=== PATIENT | female | born 1940 | race Caucasian/White ===

== ENCOUNTER 2019-04-24 17:38 | Emergency (ER) | payer MEDICARE, OTHER ==
--- NOTE | 2019-04-24 18:04 | EDM.PDOC ---
ED HPI GENERAL MEDICAL PROBLEM - General Chief Complaint: Genitourinary Problem Stated Complaint: VAGINAL BLEEDING Time Seen by Provider: 04/24/19 17:58 Source of Information: Reports: Patient History Limitations: Reports: No Limitations - History of Present Illness INITIAL COMMENTS - FREE TEXT/NARRATIVE: 79-year-old female who had a vaginal hysterectomy performed on 04/10/2019 at [facility] in [place]. She reports that she felt she had been doing well until approximately a few days ago when she began to feel some bloating and lower abdominal discomfort. She had been eating and drinking normally. Today, however , she was in bed most of the day, did not feel well all through the day, did not eat well through the day and had more lower abdominal discomfort and at 5 PM today noticed some bright red blood per her vagina. She has been somewhat constipated she feels since she was discharged home following her surgery. She has been having bowel movements but they have been hard. Her last bowel movement was about 2 days ago and it was hard. There's been no blood in her stool. She reports that she has been straining quite a bit the past couple of days trying to have bowel movements. She has been taking fiber tablets for her constipation. She was discharged from the hospital with a Ricardo catheter in place and had that in place for 1 week. She had it removed in the [facility] clinic one week ago and she has been able to urinate but has had some discomfort with urination. She has had no fevers or chills. She has had malaise all day today. She has had no nausea or vomiting. She rates the pain in her lower abdomen as a 5/10. It is a tight and crampy type pain. She states "like something is in there that needs to come out". The pain is worse at times. It does seem to be worse with palpation and with movement and with straining. There are no other associated signs or symptoms. There are no other modifying factors. Onset: Other (Abdominal discomfort for the past few days with some bloating and vaginal bleeding which began at 5 PM today.) Duration: Getting Worse Location: Reports: Abdomen, Pelvis Quality: Reports: Other (Cramping and tightness) Severity: Moderate Improves with: Reports: Rest Worsens with: Reports: Other (Palpation and activity), Movement Context: Reports: Other (As above) Associated Symptoms: Reports: Malaise, Weakness, Other (Fatigue and abdominal pain) Treatments BUSINESS OFFICE ASSOCIATE: Reports: Acetaminophen abd Pain Score (Numeric/FACES): 3 - Related Data Allergies Allergy/AdvReac Type Severity Reaction Status Date / Time miconazole Allergy Hives Verified 04/24/19 18:09 Home Meds: Home Meds Ascorbate Calcium [Vitamin C] 500 mg PO DAILY 03/09/16 [History] Aspirin [Halfprin] 81 mg PO DAILY 03/09/16 [History] Calcium Carbonate/Vitamin D3 [Os-Aman 500+D] 1 each PO BID 03/09/16 [History] Cetirizine [ZyrTEC] 10 mg PO DAILY 03/09/16 [History] Fluticasone Propionate [Flonase] 2 spray NS DAILY 03/09/16 [History] Gluc 2KCl/Chondr/Karen Hy/Hy Ac [Glucosamine & Chondroitin Cap] 1 each PO DAILY 03/09/16 [History] Multivit-Min/FA/Lycopene/Lut [Centrum Silver Tablet] 1 each PO DAILY 03/09/16 [ History] Simvastatin [Zocor] 20 mg PO BEDTIME 03/09/16 [History] Vitamin E 200 unit PO DAILY 03/09/16 [History] Losartan/Hydrochlorothiazide [Losartan-HCTZ 50-12.5 MG] 1 each PO DAILY [History] Past Medical History HEENT History: Reports: Cataract Cardiovascular History: Reports: High Cholesterol, Hypertension Gastrointestinal History: Reports: GERD Genitourinary History: Reports: Urinary Incontinence Musculoskeletal History: Reports: Osteoporosis Endocrine/Metabolic History: Reports: Hypothyroidism, Obesity/BMI 30+ Dermatologic History: Reports: Other (See Below) Other Dermatologic History: CONTACT DERMATITIS AND ECZEMA - Infectious Disease History Infectious Disease History: Reports: Chicken Pox, Rubella, Shingles - Past Surgical History HEENT Surgical History: Reports: Cataract Surgery Female Surgical History: Reports: Hysterectomy (Vaginal hysterectomy on 2018.) Musculoskeletal Surgical History: Reports: Knee Replacement (Bilateral), Shoulder Replacement (Right) Social & Family History - Tobacco Use Smoking Status *Q: Never Smoker - Alcohol Use Alcohol Use History: Yes Alcohol Use Frequency: Weekly - Living Situation & Occupation Living situation: Reports: (She is here with her .) Occupation: Retired (She worked at the [employer] in [place] until she retired.) ED ROS GENERAL - Review of Systems Review Of Systems: See Below Constitutional: Reports: Weakness, Fatigue HEENT: Reports: No Symptoms Respiratory: Reports: No Symptoms Cardiovascular: Reports: Lightheadedness (Today) GI/Abdominal: Reports: Abdominal Pain, Constipation (Heart stools and feels constipated) : Reports: Other (Bright red blood per vagina. Some discomfort with urination since catheter removed a week ago.) Musculoskeletal: Reports: No Symptoms Skin: Reports: No Symptoms Neurological: Reports: Dizziness Hematologic/Lymphatic: Reports: No Symptoms Immunologic: Reports: No Symptoms ED EXAM, GENERAL - Physical Exam Exam: See Below Exam Limited By: No Limitations General Appearance: Alert, Mild Distress, Obese Eye Exam: Bilateral Eye: EOMI, Normal Inspection, PERRL Ears: Normal External Exam Ear Exam: Bilateral Ear: Auricle Normal Nose: Normal Inspection, Normal Mucosa, No Blood Throat/Mouth: Normal Voice, No Airway Compromise, Other (Somewhat dry mucous membranes) Head: Atraumatic, Normocephalic Neck: Normal Inspection, Supple, Non-Tender, Full Range of Motion Respiratory/Chest: No Respiratory Distress, Lungs Clear, Normal Breath Sounds, No Accessory Muscle Use, Chest Non-Tender Cardiovascular: Normal Peripheral Pulses, No JVD, No Murmur, Tachycardia (Mildly ) Peripheral Pulses: 2+: Radial (L), Radial (R), Posterior Tibial (R), Dorsalis Pedis (L) GI/Abdominal: Normal Bowel Sounds, Soft, No Mass, Tender (Tender in her upper abdomen and less so in her lower abdomen.), Other (Somewhat protuberant). No: Guarding, Rebound (Female) Exam: Normal External Exam, Cervical Discharge (Slight blood-tinged and may be purulent discharge), Other (Vaginal cuff appeared intact however an area on the right appeared to be seeping some sanguinopurulent liquid.) Back Exam: Normal Inspection. No: CVA Tenderness (R), CVA Tenderness (L) Extremities: Normal Inspection, Normal Range of Motion, Non-Tender, No Pedal Edema, Normal Capillary Refill, Other (Warm hands and feet.) Neurological: Alert, Oriented, CN II-XII Intact, Normal Cognition, No Motor/ Sensory Deficits Skin Exam: Warm, Dry, Intact, Normal Color, No Rash Course - Vital Signs Last Recorded V/S: Last Vital Signs Temp 37.5 C 04/24/19 22:45 Pulse 79 04/24/19 22:45 Resp 16 04/24/19 22:45 BP 138/56 L 04/24/19 22:45 Pulse Ox 97 04/24/19 22:45 - Orders/Labs/Meds Orders: Active Orders 24 hr Category Date Time Status Abdomen Pelvis w Cont [CT] Stat Exams 04/24/19 19:14 Taken CULTURE BLOOD [BC] Urgent Lab 04/24/19 22:42 Received CULTURE BLOOD [BC] Urgent Lab 04/24/19 22:52 Received Sodium Chloride 0.9% [Normal Saline] 1,000 ml Med 04/24/19 18:45 Active IV ASDIRECTED Sodium Chloride 0.9% [Saline Flush] Med 04/24/19 18:20 Active 10 ml FLUSH ASDIRECTED PRN Blood Culture x2 Reflex Set [OM.PC] Urgent Oth 04/24/19 22:19 Ordered Peripheral IV Insertion Adult [OM.PC] Routine Oth 04/24/19 18:20 Ordered Medication Orders Sodium Chloride (Normal Saline) 1,000 mls @ 999 mls/hr IV ASDIRECTED EFREN Last Admin: 04/24/19 18:59 Dose: 999 mls/hr Sodium Chloride (Saline Flush) 10 ml FLUSH ASDIRECTED PRN PRN Reason: Keep Vein Open Last Admin: 04/24/19 18:59 Dose: 10 ml Labs: Laboratory Tests 04/24/19 04/24/19 04/24/19 Range/Units 18:30 18:30 18:30 WBC 17.6 H (4.5-12.0) X10-3/uL RBC 4.18 (3.23-5.20) x10(6)uL Hgb 12.4 (11.5-15.5) g/dL Hct 38.1 (30.0-51.3) % MCV 91.2 (80-96) fL MCH 29.6 (27.7-33.6) pg MCHC 32.4 (32.2-35.4) g/dL RDW 14.6 (11.5-15.5) % Plt Count 313 (125-369) X10(3)uL MPV 7.1 L (7.4-10.4) fL Add Manual Diff Yes Neutrophils % (Manual) 81 (46-82) % Band Neutrophils % 5 (0-6) % Lymphocytes % (Manual) 9 L (13-37) % Monocytes % (Manual) 5 (4-12) % Sodium 132 L (135-145) mmol/L Potassium 4.2 (3.5-5.3) mmol/L Chloride 96 L (100-110) mmol/L Carbon Dioxide 27 (21-32) mmol/L BUN 24 H (7-18) mg/dL Creatinine 1.3 H (0.55-1.02) mg/dL Est Cr Clr Drug Dosing 32.85 mL/min Estimated GFR (MDRD) 40 L (>60) BUN/Creatinine Ratio 18.5 (9-20) Glucose 222 H (80-116) mg/dL Calcium 9.0 (8.6-10.2) mg/dL Total Bilirubin 0.8 (0.1-1.3) mg/dL AST 16 (5-25) IU/L ALT 17 (12-36) U/L Alkaline Phosphatase 57 (56-112) IU/L C-Reactive Protein 20.3 H* (0.5-0.9) mg/dL Total Protein 7.0 (6.0-8.0) g/dL Albumin 3.0 L (3.2-4.6) g/dL Globulin 4.0 g/dL Albumin/Globulin Ratio 0.8 Amylase 27 (25-115) U/L Urine Color (YELLOW) Urine Appearance (CLEAR) Urine pH (5.0-6.5) Ur Specific [place] (1.010-1.025) Urine Protein (NEGATIVE) mg/dL Urine Glucose (UA) (NORMAL) mg/dL Urine Ketones (NEGATIVE) mg/dL Urine Occult Blood (NEGATIVE) Urine Nitrite (NEGATIVE) Urine Bilirubin (NEGATIVE) Urine Urobilinogen (NEGATIVE) mg/dL Ur Leukocyte Esterase (NEGATIVE) Urine RBC (0-5) Urine WBC (0-5) Ur Squamous Epith Cells (NS,R,O) Urine Bacteria (NS) Urine Mucus (NS) 04/24/19 Range/Units 18:40 WBC (4.5-12.0) X10-3/uL RBC (3.23-5.20) x10(6)uL Hgb (11.5-15.5) g/dL Hct (30.0-51.3) % MCV (80-96) fL MCH (27.7-33.6) pg MCHC (32.2-35.4) g/dL RDW (11.5-15.5) % Plt Count (125-369) X10(3)uL MPV (7.4-10.4) fL Add Manual Diff Neutrophils % (Manual) (46-82) % Band Neutrophils % (0-6) % Lymphocytes % (Manual) (13-37) % Monocytes % (Manual) (4-12) % Sodium (135-145) mmol/L Potassium (3.5-5.3) mmol/L Chloride (100-110) mmol/L Carbon Dioxide (21-32) mmol/L BUN (7-18) mg/dL Creatinine (0.55-1.02) mg/dL Est Cr Clr Drug Dosing mL/min Estimated GFR (MDRD) (>60) BUN/Creatinine Ratio (9-20) Glucose (80-116) mg/dL Calcium (8.6-10.2) mg/dL Total Bilirubin (0.1-1.3) mg/dL AST (5-25) IU/L ALT (12-36) U/L Alkaline Phosphatase (56-112) IU/L C-Reactive Protein (0.5-0.9) mg/dL Total Protein (6.0-8.0) g/dL Albumin (3.2-4.6) g/dL Globulin g/dL Albumin/Globulin Ratio Amylase (25-115) U/L Urine Color Yellow (YELLOW) Urine Appearance Clear (CLEAR) Urine pH 6.5 (5.0-6.5) Ur Specific [place] 1.020 (1.010-1.025) Urine Protein Negative (NEGATIVE) mg/dL Urine Glucose (UA) Normal (NORMAL) mg/dL Urine Ketones Negative (NEGATIVE) mg/dL Urine Occult Blood Negative (NEGATIVE) Urine Nitrite Negative (NEGATIVE) Urine Bilirubin Negative (NEGATIVE) Urine Urobilinogen Normal (NEGATIVE) mg/dL Ur Leukocyte Esterase Negative (NEGATIVE) Urine RBC 0-5 (0-5) Urine WBC 0-5 (0-5) Ur Squamous Epith Cells Few H (NS,R,O) Urine Bacteria Few H (NS) Urine Mucus Few H (NS) Meds: Medications Generic Name Dose Route Start Last Admin Trade Name Freq PRN Reason Stop Dose Admin Sodium Chloride 1,000 mls @ 999 mls/hr 04/24/19 18:45 04/24/19 18:59 Normal Saline IV 999 mls/hr ASDIRECTED EFREN Administration Sodium Chloride 10 ml 04/24/19 18:20 04/24/19 18:59 Saline Flush FLUSH 10 ml ASDIRECTED PRN Administration Keep Vein Open Discontinued Medications Generic Name Dose Route Start Last Admin Trade Name Freq PRN Reason Stop Dose Admin Piperacillin Sod/Tazobactam 50 mls @ 100 mls/hr 04/24/19 22:20 04/24/19 22:37 Sod 3.375 gm/ Sodium Chloride IV 04/24/19 22:49 100 mls/hr ONETIME ONE Administration Iopamidol 100 ml 04/24/19 19:40 04/24/19 19:44 Isovue-370 (76%) IV 04/24/19 19:41 100 ml ONETIME ONE Administration - Radiology Interpretation Free Text/Narrative:: CT scan of abdomen and pelvis showed a 5 x 8 cm abscess abutting the vaginal cuff with some evidence of small amount of free fluid in the area of her periesophageal hernia. But no abscess elsewhere. There was also gallstones present. 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 This was per the radiologist at [facility]. - Re-Assessments/Exams Free Text/Narrative Re-Assessment/Exam: 04/24/19 21:04: The patient has remained vitally stable. Her white blood cell count is elevated at 17.6 with a left shift. She also had an elevated CRP at 20. Her electrolytes were normal. Her BUN was 21 and her creatinine was 1.3. Her urinalysis was negative. The radiologist from [facility] called and confirmed that there was an abscess in the intra-abdominal/pelvic area with some free fluid noted. This will need some type of procedure for draining and she will need admission with IV antibiotics. She will need cares which are not available at [facility] (interventional radiology, gynecology). The vaginal hysterectomy was performed at [facility] in [place] by Dr. Jarrett and the patient and her would want me to discuss her case with the doctors at [facility] in [place]. 04/24/19 22:15: Were informed by [facility] that the physician was busy with 3 deliveries. Therefore I will order blood cultures 2 and will start the patient on Zosyn 3.375 g IV. The patient remains vitally stable. 04/24/19 22:35: I discussed the patient's case with Dr. Hopson, pipe washer insurance verification specialist at [facility], and he agreed with the cultures and the IV antibiotics and he will accept the patient in transfer for direct admission to [facility]. The patient will be transported via ambulance to [facility] for direct admission. The patient and her are in agreement with the plans for transfer. Departure - Departure Time of Disposition: 23:20 Disposition: DC/Tfer to Acute Hospital 02 Condition: Fair (Stable) Clinical Impression: Postoperative intra-abdominal abscess, Dehydration - Discharge Information Referrals: Gregorio Albarran MD [Primary Care Provider] - Forms: ED Department Discharge - My Orders Last 24 Hours: My Active Orders 04/24/19 18:20 Sodium Chloride 0.9% [Saline Flush] 10 ml FLUSH ASDIRECTED PRN Peripheral IV Insertion Adult [OM.PC] Routine 04/24/19 18:45 Sodium Chloride 0.9% [Normal Saline] 1,000 ml IV ASDIRECTED 04/24/19 19:14 Abdomen Pelvis w Cont [CT] Stat 04/24/19 22:19 Blood Culture x2 Reflex Set [OM.PC] Urgent 04/24/19 22:42 CULTURE BLOOD [BC] Urgent 04/24/19 22:52 CULTURE BLOOD [BC] Urgent - Assessment/Plan Last 24 Hours: My Active Orders 04/24/19 18:20 Sodium Chloride 0.9% [Saline Flush] 10 ml FLUSH ASDIRECTED PRN Peripheral IV Insertion Adult [OM.PC] Routine 04/24/19 18:45 Sodium Chloride 0.9% [Normal Saline] 1,000 ml IV ASDIRECTED 04/24/19 19:14 Abdomen Pelvis w Cont [CT] Stat 04/24/19 22:19 Blood Culture x2 Reflex Set [OM.PC] Urgent 04/24/19 22:42 CULTURE BLOOD [BC] Urgent 04/24/19 22:52 CULTURE BLOOD [BC] Urgent
[2019-04-24] MEDS ORDERED: Sodium Chloride 0.9% 10 ML Syringe FLUSH PRN (18:20)
[2019-04-24] MEDS ORDERED: Sodium Chloride 0.9% 1,000 ML IV SCH (18:45)
[2019-04-24] MEDS ORDERED: Iopamidol 755 Mg/ML 100 ML Bottle IV ONE (19:40)
[2019-04-24] MEDS ORDERED: Piperacillin/Tazobactam 3.375 GM in Sodium Chloride 0.9% 50 ML IV ONE (22:20)
[2019-04-24 22:48] VITALS: BP 138/56
== END 2019-04-24 23:20 ==
LOC: FB.ED 17:38
DX: T81.43XA Infection following a procedure, organ and space surgical site, initial encounter (principal); N73.5 Female pelvic peritonitis, unspecified; E86.0 Dehydration; I10 Essential (primary) hypertension; E78.00 Pure hypercholesterolemia, unspecified; E66.9 Obesity, unspecified; Z68.35 Body mass index [BMI] 35.0-35.9, adult; Z90.710 Acquired absence of both cervix and uterus; Z88.8 Allergy status to other drugs, medicaments and biological substances; Z79.82 Long term (current) use of aspirin; Z79.899 Other long term (current) drug therapy
CPT/HCPCS: 36415; 74177; 80053; 81001; 82150; 85025; 86140; 87040; 96361; 96365; 99285; J2543; J7030; J7050; Q9967

== ENCOUNTER 2020-04-18 11:27 | Inpatient (IN) | payer MEDICARE, OTHER ==
[2020-04-18] MEDS ORDERED: Cetirizine 10 MG Tab PO PRN (15:07)
[2020-04-18] MEDS ORDERED: Carboxymethylcellulose Sodium 0.5% Ophth Soln 15 ML Bottle EYEBOTH PRN (15:07)
[2020-04-18] MEDS: prednisoLONE Acetate 1% Ophth Susp 5 ML Bottle EYERT SCH ×2 (17:33→22:03)
--- NOTE | 2020-04-18 20:46 | HP ---
ADMISSION DATE: 04/18/2020 HISTORY: Carol is an 80-year-old resident of [place], [place], with a history of severe hip arthritis who underwent left total hip arthroplasty by Dr. Michelle at [facility] in [place] on 04/14/2020. She had satisfactory operative and postop course and was now discharged here to [facility] for further rehabilitation before being discharged to home. The patient states she is quite comfortable. She is taking Tylenol and occasional oxycodone for pain. She has not had any fever, chills, sweats, symptoms of infection. She has walked with physical therapy regularly. She has not done any stairs, and she is doing leg exercises, avoiding abduction of the left hip nor adduction of the left hip. PAST MEDICAL HISTORY: Severe osteoarthritis, left hip, as mentioned. She also has severe osteoarthritis of left shoulder with planning for future shoulder surgery. She has osteoarthritis of lumbar spine, hypertension, chronic mixed incontinence. She is status post vaginal hysterectomy and anterior colporrhaphy with postop abscess drained radiologically. She has a history of chronic essential hypertension, osteoporosis, hyperlipidemia, osteoarthritis with knee arthroplasties, right shoulder arthroplasty, glaucoma. She is status post cataract surgeries. She has mild to moderate aortic stenosis. MEDICATIONS: 1. Tylenol p.r.n. 2. Artificial Tears p.r.n. 3. Aspirin 81 mg daily. 4. Zyrtec 10 mg daily. 5. Hydrochlorothiazide 12.5 mg daily. 6. Xalatan 1 drop both eyes at bedtime. 7. Cozaar 50 mg daily at bedtime. 8. Multivitamin one daily. 9. Calcium carbonate with D one daily. 10.Combigan eye drops 1 drop right eye b.i.d. 11.Eliquis 2.5 mg b.i.d. 12.Oxycodone 5 mg every 6 hours p.r.n. pain. 13.MiraLAX 17 g daily. 14.Pred Forte 1 drop right eye q.i.d. 15.Senokot-S one b.i.d. 16.Simvastatin 20 mg at bedtime. ALLERGIES: Miconazole. HABITS: Nonsmoker and nondrinker. FAMILY AND SOCIAL HISTORY: The patient is , lives with her who is 90 years old in [place]. She has a daughter in [place] who is a nurse at the care home and who used to work as a nurse at [employer]. REVIEW OF SYSTEMS: GENERAL: No seizure, syncope, or recent severe weight change. SKIN: Negative for rash. HEENT: No recent change in hearing or vision. No sore throat or URI. PULMONARY: No cough or purulent sputum. CARDIOVASCULAR: No chest pain or palpitations. GASTROINTESTINAL: No abdominal pain, nausea, or diarrhea. GENITOURINARY: She does have chronic incontinence that is stable at the moment. EXTREMITIES: She does have shoulder pain and is planning upcoming left shoulder replacement. PHYSICAL EXAMINATION: GENERAL: She is alert, comfortable, and healthy in appearance. HEENT: Pupils are equal and reactive. She has bilateral proptosis that is longstanding. Mouth is dry. LUNGS: Clear to the bases. HEART: Regular. There is a 3/6 systolic murmur, most prominent over the aortic area. ABDOMEN: Obese, soft, nontender. No masses or organomegaly. EXTREMITIES: Show no edema. Good pedal pulses. She has mild ecchymosis about the left hip and a bandage covering her left lateral trochanteric area from hip arthroplasty. LABORATORY: Hemoglobin yesterday 9.4. Last creatinine 0.84. Electrolytes normal. Glucose normal. ASSESSMENT: 1. Four days status post left total hip arthroplasty, now healing satisfactorily. 2. Chronic essential hypertension, controlled. 3. Chronic allergic rhinitis. 4. Hyperlipidemia. 5. Widespread osteoarthritis with multiple joint replacements and ongoing left shoulder symptoms. 6. Glaucoma. 7. Chronic dry eyes. 8. Aortic stenosis, mild to moderate. PLAN: She will receive physical and occupational therapy for rehab from her hip surgery with plans to go home when improved adequately. We will continue her current medications. She is due to finish [employer] at the end of April, at around May 18. We will continue to provide palliative care measures for her underlying arthritic problems. /[id number] JOSH/BRIELLE
[2020-04-18] MEDS: Brimonidine 0.2% Ophth Soln 5 ML Bottle EYERT SCH (21:57)
[2020-04-18] MEDS: Losartan 50 MG Tab PO SCH (21:59)
[2020-04-18] MEDS: Hydrochlorothiazide 12.5 MG Cap PO SCH (22:02)
[2020-04-18] MEDS: Apixaban 5 MG Tab PO SCH (22:04)
[2020-04-18] MEDS: Aspirin 81 MG Tab.EC PO SCH (22:05)
[2020-04-18] MEDS: Carboxymethylcellulose 0.5%/Glycerin 0.9% Ophth Soln 15 ML Bottle EYEBOTH SCH (22:07)
[2020-04-18] MEDS: Timolol Maleate 0.5% Ophth Soln 5 ML Bottle EYERT SCH (22:09)
[2020-04-18] MEDS: Simvastatin 20 MG Tab PO SCH (22:10)
[2020-04-18] MEDS: Latanoprost 0.005% Ophth Soln 2.5 ML Bottle EYEBOTH SCH (22:11)
[2020-04-18] MEDS: oxyCODONE 5 MG Tab PO PRN (22:21)
[2020-04-19] MEDS: Calcium Carbonate 500 MG Tablet PO SCH (08:23)
[2020-04-19] MEDS: Brimonidine 0.2% Ophth Soln 5 ML Bottle EYERT SCH ×2 (08:23→21:38)
[2020-04-19] MEDS: Apixaban 5 MG Tab PO SCH ×2 (08:23→21:40)
[2020-04-19] MEDS: prednisoLONE Acetate 1% Ophth Susp 5 ML Bottle EYERT SCH ×4 (08:24→21:39)
[2020-04-19] MEDS: Polyethylene Glycol 3350 Powder 17 GM Packet PO SCH (08:24)
[2020-04-19] MEDS: Multivitamins with Iron/Calcium/Folic Acid/Minerals Tab PO SCH (08:25)
[2020-04-19] MEDS: Timolol Maleate 0.5% Ophth Soln 5 ML Bottle EYERT SCH ×2 (08:25→21:41)
[2020-04-19] MEDS: Acetaminophen 325 MG Tab PO PRN (09:03)
[2020-04-19] MEDS: oxyCODONE 5 MG Tab PO PRN (21:35)
[2020-04-19] MEDS: Simvastatin 20 MG Tab PO SCH (21:35)
[2020-04-19] MEDS: Aspirin 81 MG Tab.EC PO SCH (21:35)
[2020-04-19] MEDS: Hydrochlorothiazide 12.5 MG Cap PO SCH (21:36)
[2020-04-19] MEDS: Losartan 50 MG Tab PO SCH (21:36)
[2020-04-19] MEDS: Carboxymethylcellulose 0.5%/Glycerin 0.9% Ophth Soln 15 ML Bottle EYEBOTH SCH (21:40)
[2020-04-19] MEDS: Latanoprost 0.005% Ophth Soln 2.5 ML Bottle EYEBOTH SCH (21:41)
[2020-04-20] MEDS: oxyCODONE 5 MG Tab PO PRN ×2 (03:32→21:17)
[2020-04-20] MEDS: Multivitamins with Iron/Calcium/Folic Acid/Minerals Tab PO SCH (08:38)
[2020-04-20] MEDS: Polyethylene Glycol 3350 Powder 17 GM Packet PO SCH (08:38)
[2020-04-20] MEDS: Apixaban 5 MG Tab PO SCH ×2 (08:38→21:03)
[2020-04-20] MEDS: Calcium Carbonate 500 MG Tablet PO SCH (08:38)
[2020-04-20] MEDS: Brimonidine 0.2% Ophth Soln 5 ML Bottle EYERT SCH ×2 (08:39→20:46)
[2020-04-20] MEDS: Timolol Maleate 0.5% Ophth Soln 5 ML Bottle EYERT SCH ×2 (08:39→21:06)
[2020-04-20] MEDS: prednisoLONE Acetate 1% Ophth Susp 5 ML Bottle EYERT SCH ×4 (08:39→20:59)
[2020-04-20] MEDS: Acetaminophen 325 MG Tab PO PRN (09:25)
[2020-04-20] MEDS: Losartan 50 MG Tab PO SCH (20:46)
[2020-04-20] MEDS: Hydrochlorothiazide 12.5 MG Cap PO SCH (21:02)
[2020-04-20] MEDS: Latanoprost 0.005% Ophth Soln 2.5 ML Bottle EYEBOTH SCH (21:04)
[2020-04-20] MEDS: Aspirin 81 MG Tab.EC PO SCH (21:05)
[2020-04-20] MEDS: Carboxymethylcellulose 0.5%/Glycerin 0.9% Ophth Soln 15 ML Bottle EYEBOTH SCH (21:06)
[2020-04-20] MEDS: Simvastatin 20 MG Tab PO SCH (22:06)
[2020-04-21] MEDS: oxyCODONE 5 MG Tab PO PRN ×3 (02:56→21:14)
[2020-04-21] MEDS: Calcium Carbonate 500 MG Tablet PO SCH (07:41)
[2020-04-21] MEDS: Timolol Maleate 0.5% Ophth Soln 5 ML Bottle EYERT SCH ×2 (08:17→21:17)
[2020-04-21] MEDS: prednisoLONE Acetate 1% Ophth Susp 5 ML Bottle EYERT SCH ×4 (08:17→21:14)
[2020-04-21] MEDS: Brimonidine 0.2% Ophth Soln 5 ML Bottle EYERT SCH ×2 (08:18→21:15)
[2020-04-21] MEDS: Apixaban 5 MG Tab PO SCH ×2 (08:19→21:15)
[2020-04-21] MEDS: Polyethylene Glycol 3350 Powder 17 GM Packet PO SCH (08:20)
[2020-04-21] MEDS: Multivitamins with Iron/Calcium/Folic Acid/Minerals Tab PO SCH (08:20)
[2020-04-21] MEDS: Aspirin 81 MG Tab.EC PO SCH (21:15)
[2020-04-21] MEDS: Latanoprost 0.005% Ophth Soln 2.5 ML Bottle EYEBOTH SCH (21:15)
[2020-04-21] MEDS: Losartan 50 MG Tab PO SCH (21:16)
[2020-04-21] MEDS: Hydrochlorothiazide 12.5 MG Cap PO SCH (21:17)
[2020-04-21] MEDS: Simvastatin 20 MG Tab PO SCH (21:17)
[2020-04-21] MEDS: Carboxymethylcellulose 0.5%/Glycerin 0.9% Ophth Soln 15 ML Bottle EYEBOTH SCH (21:17)
[2020-04-22] MEDS: Acetaminophen 325 MG Tab PO PRN (02:25)
[2020-04-22] MEDS: oxyCODONE 5 MG Tab PO PRN (03:17)
[2020-04-22] MEDS: Calcium Carbonate 500 MG Tablet PO SCH (08:05)
[2020-04-22] MEDS: Apixaban 5 MG Tab PO SCH (08:05)
[2020-04-22] MEDS: Brimonidine 0.2% Ophth Soln 5 ML Bottle EYERT SCH (08:06)
[2020-04-22] MEDS: Timolol Maleate 0.5% Ophth Soln 5 ML Bottle EYERT SCH (08:07)
[2020-04-22] MEDS: Polyethylene Glycol 3350 Powder 17 GM Packet PO SCH (08:07)
[2020-04-22] MEDS: Multivitamins with Iron/Calcium/Folic Acid/Minerals Tab PO SCH (08:07)
[2020-04-22] MEDS: prednisoLONE Acetate 1% Ophth Susp 5 ML Bottle EYERT SCH (08:07)
[2020-04-22 09:59] VITALS: BP 120/74; PULSE 54
--- NOTE | 2020-04-22 18:32 | DISCH ---
DISCHARGE DATE: 04/22/2020 DISCHARGE DIAGNOSIS: Left total hip arthroplasty with surgical repair 04/14/2020. HISTORY OF PRESENT ILLNESS: Carol Schulz is an 80-year-old female admitted to [facility]. Underwent left total hip arthroplasty in by Dr. Michelle, provider of record on 04/14/2020. Had an uncomplicated postoperative course, discharged to [facility] for therapy. Doing well. Pain is controlled. Uses oxycodone infrequently. Therapy is happy with intervention. HOSPITAL STAY: Therapy was involved. OT, PT, ambulation skills, pain control, all were comfortably successful in terms of outcome. At the time of discharge, she was comfortable and heading home with home health to be involved PT, OT. Surgical procedure 04/14. PHYSICAL EXAMINATION: VITAL SIGNS: 102 kg, 36.3, 54 is the pulse, 120/74, 18 is the respiration, 97. GENERAL: Appears comfortable. NECK: Benign. Thyroid small. CHEST: On auscultation, clear in all lung portillo. HEART: Soft murmur. Occasional ectopy. ABDOMEN: Benign. EXTREMITIES: Surgical wound, left hip, healing well without conflict. PLAN: Discharge home with home health and intervention. MEDICATIONS: Please see med recon list. FOLLOWUP: Will follow up with Dr. Michelle as appropriate. Home care and therapy. SURGICAL PROCEDURES: Noted above. /[id number] LAILA/BRIELLE
== END 2020-04-22 11:10 | disposition home or self-care (01) | DRG 561 ==
LOC: FB.MS 13:43
PROVIDERS: ADMIT Family Medicine; ATTEND Family Medicine
DX: Z47.1 Aftercare following joint replacement surgery (principal); Z96.642 Presence of left artificial hip joint; M19.012 Primary osteoarthritis, left shoulder; I10 Essential (primary) hypertension; M81.0 Age-related osteoporosis without current pathological fracture; E78.5 Hyperlipidemia, unspecified; M17.0 Bilateral primary osteoarthritis of knee; J30.9 Allergic rhinitis, unspecified; H04.123 Dry eye syndrome of bilateral lacrimal glands; H40.9 Unspecified glaucoma; E66.9 Obesity, unspecified; K21.9 Gastro-esophageal reflux disease without esophagitis; I35.0 Nonrheumatic aortic (valve) stenosis; Z79.82 Long term (current) use of aspirin; Z79.899 Other long term (current) drug therapy; Z88.8 Allergy status to other drugs, medicaments and biological substances; Z68.37 Body mass index [BMI] 37.0-37.9, adult
CPT/HCPCS: 36415; 80048; 85025; 97110-GP; 97116-GP; 97161-GP; 97165-GO; 97530-GO; 97535-GO; A9270-GY

== ENCOUNTER 2020-04-24 10:55 | Inpatient (IN) | payer MEDICARE, OTHER ==
--- NOTE | 2020-04-24 11:15 | EDM.PDOC ---
ED HPI GENERAL MEDICAL PROBLEM - General Chief Complaint: Lower Extremity Injury/Pain Stated Complaint: LEFT HIP PAIN Time Seen by Provider: 04/24/20 11:10 Source of Information: Reports: Patient, Old Records History Limitations: Reports: No Limitations - History of Present Illness INITIAL COMMENTS - FREE TEXT/NARRATIVE: 80 yo female was discharged from swing bed here on Saturday after L hip replacement. Is on acetaminophen and oxycodone for pain relief. Uses a walker to help her get around. Today her pain is worse than yesterday and not able to get around. Denies fever or new injury. Here via EMS. Last took acetaminophen 1000 mg at 6 am and oxycodone 5 mg at 0930h. Bowels have been working OK. is 89 yrs old and not able to help her except with meal preparation. 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, Other (see below) (oxycodone) - Related Data Allergies Allergy/AdvReac Type Severity Reaction Status Date / Time miconazole Allergy Hives Verified 04/24/20 11:16 Home Meds: Home Meds Aspirin [Halfprin] 81 mg PO BEDTIME 03/09/16 [History] Calcium Carbonate/Vitamin D3 [Os-Aman 500+D] 1 each PO WITHBREAKFAST 03/09/16 [History] Cetirizine [ZyrTEC] 10 mg PO DAILY PRN 03/09/16 [History] Multivit-Min/FA/Lycopen/Lutein [Centrum Silver Tablet] 1 each PO DAILY 03/09/16 [History] Simvastatin [Zocor] 20 mg PO BEDTIME 03/09/16 [History] Losartan/Hydrochlorothiazide [Losartan-HCTZ 50-12.5 MG] 1 each PO BEDTIME 04/24/19 [History] Acetaminophen [Tylenol] 650 mg PO Q4H PRN 04/18/20 [History] Brimonidine Tartrate/Timolol [Combigan 0.2%-0.5% Eye Drops] 1 drop EYERT BID 08/31/20 [History] Carboxymethylcellulos/Glycerin [Refresh Optive] 1 drop EYEBOTH BEDTIME 04/18/20 [History] Carboxymethylcellulose Sodium [Refresh Tears] 1 drop EYEBOTH Q2H PRN 04/18/20 [History] Latanoprost [Xalatan 0.005% Ophth Soln] 1 drop EYEBOTH BEDTIME 04/18/20 [History] Sennosides/Docusate Sodium [Senna-S] 1 tab PO BID 04/18/20 [History] polyethylene glycoL 3350 [MiraLAX] 17 gm PO DAILY 04/18/20 [History] prednisoLONE acetate [Pred Forte 1% Ophth Susp] 1 drop EYERT QID 04/18/20 [History] Apixaban [Eliquis] 2.5 mg PO BID #55 04/22/20 [Rx] oxyCODONE 5 mg PO Q6H PRN #20 tab 04/22/20 [Rx] Past Medical History HEENT History: Reports: Cataract Cardiovascular History: Reports: High Cholesterol, Hypertension Gastrointestinal History: Reports: GERD Genitourinary History: Reports: Urinary Incontinence 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: Musculoskeletal History: Reports: Osteoporosis Other Musculoskeletal History: FS UPPER END OF HUMERUS Endocrine/Metabolic History: Reports: Obesity/BMI 30+ Dermatologic History: Reports: Other (See Below) Other Dermatologic History: CONTACT DERMATITIS AND ECZEMA - Infectious Disease History Infectious Disease History: Reports: Chicken Pox, Rubella, Shingles - Past Surgical History HEENT Surgical History: Reports: Cataract Surgery GI Surgical History: Reports: Colonoscopy Female Surgical History: Reports: Hysterectomy Musculoskeletal Surgical History: Reports: Hip Replacement, Knee Replacement, Shoulder Replacement Social & Family History - Family History Family Medical History: Unobtainable - Caffeine Use Caffeine Use: Reports: Coffee - Living Situation & Occupation Living situation: Reports: (She is here with her .) Occupation: Retired (She worked at the [employer] in [place] until she retired.) Review of Systems - Review of Systems Review Of Systems: Comprehensive ROS is negative, except as noted in HPI. Constitutional: Reports: No Symptoms Musculoskeletal: Reports: Joint Pain (L hip) Skin: Reports: No Symptoms Neurological: Reports: No Symptoms ED EXAM, GENERAL - Physical Exam Exam: See Below Exam Limited By: No Limitations General Appearance: Alert, WD/WN, No Apparent Distress, Obese Eye Exam: Bilateral Eye: Normal Inspection Ears: Normal External Exam, Normal Canal, Hearing Grossly Normal Ear Exam: Bilateral Ear: Auricle Normal, Canal Normal Nose: Normal Inspection, No Blood Throat/Mouth: Normal Inspection, Normal Lips, Normal Oropharynx, Normal Voice, No Airway Compromise Head: Atraumatic, Normocephalic Neck: Normal Inspection Respiratory/Chest: No Respiratory Distress, Lungs Clear, Normal Breath Sounds, No Accessory Muscle Use Cardiovascular: Regular Rate, Rhythm, No Edema GI/Abdominal: Normal Bowel Sounds, Soft, Non-Tender Extremities: Normal Inspection, No Pedal Edema, Other (Tolerating L hip extension and internal/external rotation per examiner. ) Neurological: Alert, Oriented, CN II-XII Intact, Normal Cognition, No Motor/Sensory Deficits Psychiatric: Normal Affect, Normal Mood Skin Exam: Warm, Dry, Intact, Normal Color, No Rash Course - Vital Signs Text/Narrative:: Dr. Abreu called @ 1200h Last Recorded V/S: Last Vital Signs Temp 36.7 C 04/24/20 11:15 Pulse 58 L 04/24/20 11:15 Resp 17 04/24/20 11:15 BP 171/72 H 04/24/20 11:15 Pulse Ox 95 04/24/20 11:15 - Orders/Labs/Meds Orders: Active Orders 24 hr Category Date Time Status Hip Min 1V Lt [CR] Stat Exams 04/24/20 11:25 Ordered Labs: Laboratory Tests 04/24/20 04/24/20 04/24/20 Range/Units 11:25 11:25 11:25 WBC 5.0 (4.5-12.0) X10-3/uL RBC 3.33 (3.23-5.20) x10(6)uL Hgb 9.8 L (11.5-15.5) g/dL Hct 29.9 L (30.0-51.3) % MCV 89.8 (80-96) fL MCH 29.5 (27.7-33.6) pg MCHC 32.9 (32.2-35.4) g/dL RDW 14.3 (11.5-15.5) % Plt Count 384 H (125-369) X10(3)uL Sodium 134 L (135-145) mmol/L Potassium 4.3 (3.5-5.3) mmol/L Chloride 97 L (100-110) mmol/L Carbon Dioxide 32 (21-32) mmol/L BUN 19 H (7-18) mg/dL Creatinine 1.0 (0.55-1.02) mg/dL Est Cr Clr Drug Dosing TNP Estimated GFR (MDRD) 53 L (>60) BUN/Creatinine Ratio 19.0 (9-20) Glucose 106 (80-116) mg/dL Calcium 9.1 (8.6-10.2) mg/dL C-Reactive Protein 2.2 H (0.5-0.9) mg/dL Urine Color (YELLOW) Urine Appearance (CLEAR) Urine pH (5.0-6.5) Ur Specific [place] (1.010-1.025) Urine Protein (NEGATIVE) mg/dL Urine Glucose (UA) (NORMAL) mg/dL Urine Ketones (NEGATIVE) mg/dL Urine Occult Blood (NEGATIVE) Urine Nitrite (NEGATIVE) Urine Bilirubin (NEGATIVE) Urine Urobilinogen (NEGATIVE) mg/dL Ur Leukocyte Esterase (NEGATIVE) Urine RBC (0-5) Urine WBC (0-5) Ur Squamous Epith Cells (NS,R,O) Amorphous Sediment Urine Bacteria (NS) 04/24/20 Range/Units 12:33 WBC (4.5-12.0) X10-3/uL RBC (3.23-5.20) x10(6)uL Hgb (11.5-15.5) g/dL Hct (30.0-51.3) % MCV (80-96) fL MCH (27.7-33.6) pg MCHC (32.2-35.4) g/dL RDW (11.5-15.5) % Plt Count (125-369) X10(3)uL Sodium (135-145) mmol/L Potassium (3.5-5.3) mmol/L Chloride (100-110) mmol/L Carbon Dioxide (21-32) mmol/L BUN (7-18) mg/dL Creatinine (0.55-1.02) mg/dL Est Cr Clr Drug Dosing Estimated GFR (MDRD) (>60) BUN/Creatinine Ratio (9-20) Glucose (80-116) mg/dL Calcium (8.6-10.2) mg/dL C-Reactive Protein (0.5-0.9) mg/dL Urine Color Yellow (YELLOW) Urine Appearance Cloudy (CLEAR) Urine pH 7.0 H (5.0-6.5) Ur Specific [place] 1.010 (1.010-1.025) Urine Protein Negative (NEGATIVE) mg/dL Urine Glucose (UA) Normal (NORMAL) mg/dL Urine Ketones Negative (NEGATIVE) mg/dL Urine Occult Blood Moderate H (NEGATIVE) Urine Nitrite Negative (NEGATIVE) Urine Bilirubin Negative (NEGATIVE) Urine Urobilinogen Normal (NEGATIVE) mg/dL Ur Leukocyte Esterase Negative (NEGATIVE) Urine RBC 5-10 H (0-5) Urine WBC 0-5 (0-5) Ur Squamous Epith Cells Few H (NS,R,O) Amorphous Sediment Many Urine Bacteria Many H (NS) Meds: Medications Discontinued Medications Generic Name Dose Route Start Last Admin Trade Name Freq PRN Reason Stop Dose Admin Acetaminophen 1,000 mg 04/24/20 12:00 04/24/20 12:19 Tylenol Extra Strength PO 04/24/20 12:01 1,000 mg ONETIME ONE Administration Sodium Chloride 1,000 mls @ 1,000 mls/hr 04/24/20 11:56 Normal Saline IV 04/24/20 12:55 .BOLUS ONE Oxycodone HCl 5 mg 04/24/20 11:18 04/24/20 12:19 Oxycodone PO 04/24/20 11:19 5 mg ONETIME ONE Administration - Radiology Interpretation Free Text/Narrative:: L hip X-ray-no pathology noted Departure - Departure Time of Disposition: 14:26 Disposition: Refer to Observation Condition: Fair Clinical Impression: Left hip pain - Discharge Information *PRESCRIPTION DRUG MONITORING PROGRAM REVIEWED*: No *COPY OF PRESCRIPTION DRUG MONITORING REPORT IN PATIENT JULISA: No Referrals: PCP,None [Ordering Only Provider] - Forms: ED Department Discharge Sepsis Event Note (ED) - Focused Exam Vital Signs: Vital Signs Temp Pulse Resp BP Pulse Ox 04/24/20 11:15 36.7 C 58 L 17 171/72 H 95 - My Orders Last 24 Hours: My Active Orders 04/24/20 11:25 Hip Min 1V Lt [CR] Stat - Assessment/Plan Last 24 Hours: My Active Orders 04/24/20 11:25 Hip Min 1V Lt [CR] Stat
[2020-04-24] MEDS ORDERED: oxyCODONE 5 MG Tab PO ONE (11:18)
[2020-04-24] MEDS ORDERED: Sodium Chloride 0.9% 1,000 ML IV ONE (11:56)
[2020-04-24] MEDS ORDERED: Acetaminophen 500 MG Tab PO ONE (12:00)
--- NOTE | 2020-04-24 13:56 | PCM.SN.2 ---
- Free Text/Narrative Note: Was called to start a IV on this patient due to several attempts by two nurses without success. I attemptted to start a 22g IV in right hand x1 in right hand without success. I started a 18 g IV in left antecubetal after numbing site with 0.3 cc's of 1% lidocaine. Secured site and flushed with 10cc's of normal saline and this flushes with ease.
[2020-04-24] MEDS ORDERED: prednisoLONE Acetate 1% Ophth Susp 5 ML Bottle EYERT SCH (17:00)
[2020-04-24] MEDS: oxyCODONE 5 MG Tab PO PRN (18:33)
[2020-04-24] MEDS: Latanoprost 0.005% Ophth Soln 2.5 ML Bottle**OWN MED EYEBOTH SCH (20:55)
[2020-04-24] MEDS ORDERED: Latanoprost 0.005% Ophth Soln 2.5 ML Bottle EYEBOTH SCH (21:00)
[2020-04-24] MEDS: Aspirin 81 MG Tab.EC PO SCH (21:02)
[2020-04-24] MEDS: Hydrochlorothiazide 12.5 MG Cap PO SCH (21:02)
[2020-04-24] MEDS: Apixaban 5 MG Tab PO SCH (21:02)
[2020-04-24] MEDS: Losartan 50 MG Tab PO SCH (21:02)
[2020-04-24] MEDS: Acetaminophen 325 MG Tab PO PRN (22:25)
[2020-04-25] MEDS: oxyCODONE 5 MG Tab PO PRN ×4 (02:02→21:26)
[2020-04-25] MEDS: Apixaban 5 MG Tab PO SCH ×2 (08:35→20:32)
--- NOTE | 2020-04-25 12:31 | PN ---
DATE SEEN: 04/25/2020 SUBJECTIVE: Carol Schulz was readmitted yesterday for acute left hip pain. Pain medications on board. PT to evaluate. PHYSICAL EXAMINATION: VITAL SIGNS: Stable. No complicating issue. HEENT: Mouth and oropharynx clear. NECK: Benign. Thyroid small. CHEST: Clear. HEART: Regular. ABDOMEN: Benign. ASSESSMENT: 1. Left hip pain. 2. Anemia, hemoglobin 9.8. PLAN: Medications, care, and treatment on board. /[id number] LAILA/BRIELLE
--- NOTE | 2020-04-25 13:22 | HP ---
ADMISSION DATE: 04/24/2020 HISTORY OF PRESENT ILLNESS: Carol Schulz is an 80-year-old female who was seen at [facility] ER, admitted to hospital. Carol had undergone left total hip arthroplasty in [facility] on 04/14/2020 and discharged on 04/18/2020. She was admitted to [facility] or swing bed, had acute care stay, and discharged on Saturday on 04/22/2020 in reasonably good health and by observation was able to care for herself. Saturday went okay. Saturday, not so okay. Difficulty getting into bed, got in a chair on the day of admission, unable to get off the chair due to complicated pain. Analgesics were on board. Was seen in the ER initially. She appeared to be stable, radiographs were fine, laboratory studies were stable, and admitted for intervention. MEDICATIONS: Please see med recon list. PAST MEDICAL HISTORY: Significant for as mentioned recent left hip arthroplasty. She had a vaginal hysterectomy in 2019 for benign disease, cystocele repair, bilateral cataract surgeries, both total knee arthroplasty, and right shoulder arthroplasty. Chronic illnesses include hypertension, hyperlipidemia, constipation, and glaucoma. SOCIAL HISTORY: Lives with her in [place]. Retired. Never smoked. No alcohol, one drink per week. No illicit drug use. FAMILY HISTORY: Negative for early heart disease, diabetes mellitus, or inheritable cancer. REVIEW OF SYSTEMS: CONSTITUTIONAL: Feeling poorly. EYES: Sees well. EARS: Hears well. OROPHARYNX: Intact dentition. GASTROINTESTINAL: Bowels have been fine. GENITOURINARY: Voiding comfortably, no blood in urine. CARDIOVASCULAR: No chest pain. RESPIRATORY: No chronic cough. ORTHOPEDIC: Severe left hip pain, general weakness. SKIN: No lesions, eruptions, or moles. PHYSICAL EXAMINATION: VITAL SIGNS: Stable. Appears comfortable. HEENT: Mouth and oropharynx are clear. NECK: Benign. Thyroid small. CHEST: Clear in all lung portillo. HEART: 3/6 systolic ejection murmur. Occasional ectopy. ABDOMEN: Benign, well-healed surgical scars. GENITOURINARY AND RECTAL: Deferred. EXTREMITIES: Well perfused. Hip surgical scar intact. LABORATORY STUDIES: Noted. ASSESSMENT: Protracted hip pain, inability to walk. PLAN: Admission to hospital is indicated, short-term stay expected. Swing bed to follow. /[id number] LAILA/BRIELLE
[2020-04-25] MEDS: Acetaminophen 325 MG Tab PO PRN ×3 (13:51→22:51)
[2020-04-25] MEDS: Aspirin 81 MG Tab.EC PO SCH (20:33)
[2020-04-25] MEDS: Latanoprost 0.005% Ophth Soln 2.5 ML Bottle**OWN MED EYEBOTH SCH (20:34)
[2020-04-25] MEDS: Hydrochlorothiazide 12.5 MG Cap PO SCH (20:34)
[2020-04-25] MEDS: Losartan 50 MG Tab PO SCH (21:24)
[2020-04-26] MEDS: oxyCODONE 5 MG Tab PO PRN ×3 (03:58→16:22)
[2020-04-26] MEDS: Acetaminophen 325 MG Tab PO PRN ×2 (06:56→15:04)
[2020-04-26] MEDS: Apixaban 5 MG Tab PO SCH ×2 (08:24→20:09)
--- NOTE | 2020-04-26 10:22 | CR ---
INDICATION: Increased pain. Recent replacement. No history of trauma. LEFT HIP: Three images of the left hip in frontal and lateral projections were obtained 04/24/20 and compared with 04/14/20, again revealing a total hip arthroplasty which appears to be in good position and alignment, without evidence of a complicating process. Moderate hypertrophic degenerative changes are again present at the left sacroiliac joint. No acute fracture or dislocation is seen. IMPRESSION: Satisfactory appearance post total hip arthroplasty on the left. MTDD
--- NOTE | 2020-04-26 12:00 | PN ---
DATE SEEN: 04/26/2020 SUBJECTIVE: Carol Schulz is a young lady, 80 years of age. Readmitted with complicated pain. Taking her analgesics routinely. Presently on oxycodone 5 mg 1 p.o. daily. Tylenol 650 q.6 hours p.r.n. for pain; we will change that to a regular dose. LABORATORY STUDIES: None indicated. RADIOGRAPH: Right hip, 04/24/2020, revealed satisfactory appearance left total hip arthroplasty. PHYSICAL EXAMINATION: VITAL SIGNS: Stable, 37.0, 65, 117/60, 18, 97%. GENERAL: Appears good. NECK: Benign. Thyroid small. CHEST: Clear in all lung portillo. HEART: No ectopy or murmur. ABDOMEN: Benign. Surgical wound site intact. ASSESSMENT: Left hip fracture, postoperative pain. PLAN: Pain medications on board, timing appropriate care. /[id number] LAILA/BRIELLE
[2020-04-26] MEDS: TIMOLOL EYERT SCH ×5 (12:12→20:08)
[2020-04-26] MEDS: BRIMONIDINE TARTRATE EYERT SCH ×5 (12:12→20:08)
[2020-04-26] MEDS: Acetaminophen 500 MG Tab PO SCH ×2 (13:57→20:09)
[2020-04-26] MEDS: Aspirin 81 MG Tab.EC PO SCH (20:09)
[2020-04-26] MEDS: Hydrochlorothiazide 12.5 MG Cap PO SCH (20:09)
[2020-04-26] MEDS: Losartan 50 MG Tab PO SCH (20:09)
[2020-04-26] MEDS: Latanoprost 0.005% Ophth Soln 2.5 ML Bottle**OWN MED EYEBOTH SCH (20:11)
[2020-04-26] MEDS ORDERED: Aluminum Hydroxide/Magnesium Hydroxide Susp 30 ML Cup PO PRN (22:16)
[2020-04-27] MEDS: oxyCODONE 5 MG Tab PO PRN ×4 (02:13→22:45)
[2020-04-27] MEDS: Apixaban 5 MG Tab PO SCH ×2 (08:04→20:25)
[2020-04-27] MEDS: TIMOLOL EYERT SCH ×2 (08:04→20:24)
[2020-04-27] MEDS: BRIMONIDINE TARTRATE EYERT SCH ×2 (08:04→20:24)
[2020-04-27] MEDS: Acetaminophen 500 MG Tab PO SCH ×3 (08:05→20:25)
--- NOTE | 2020-04-27 11:48 | PN ---
DATE SEEN: 04/27/2020 SUBJECTIVE: Carol Schulz is an 80-year-old female admitted. Been in acute care stay, swing bed, discharged home, fall back and well-being and inability to care for self was needed and recurrent hospitalization. LABORATORY STUDIES: Revealed hemoglobin 9.8, stable. Urinalysis clear. GFR 53. PHYSICAL EXAMINATION: VITAL SIGNS: Stable. 36.3, 54, 143/65, 20, 98. GENERAL: As always, in good spirits. NECK: Benign. Thyroid small. CHEST: Clear. HEART: Regular. ABDOMEN: Benign. Surgical scar intact. ASSESSMENT: Left hip arthroplasty. PLAN: Physical therapy on board. Likely discharge home tomorrow. /[id number] LAILA/BRIELLE
--- NOTE | 2020-04-27 15:10 | CR ---
INDICATION: Left hip pain. LEFT HIP: Frontal and lateral views of the left hip were obtained 04/27/20 and compared with 04/24/20 and 04/14/20. The total hip arthroplasty is again noted in good position and alignment, without a definite complicating process identified. Bone density appeared to be fairly normal. If symptoms persist - if occult abnormality such as early loosening is suspected clinically, 3-phase nuclear bone imaging may be helpful for further evaluation. Report was called to Dr. Abreu at 1419 hours 04/27/20. [facility]
[2020-04-27] MEDS: Losartan 50 MG Tab PO SCH (20:25)
[2020-04-27] MEDS: Hydrochlorothiazide 12.5 MG Cap PO SCH (20:25)
[2020-04-27] MEDS: Aspirin 81 MG Tab.EC PO SCH (20:25)
[2020-04-27] MEDS: Latanoprost 0.005% Ophth Soln 2.5 ML Bottle**OWN MED EYEBOTH SCH (20:27)
[2020-04-28] MEDS: TIMOLOL EYERT SCH (08:06)
[2020-04-28] MEDS: BRIMONIDINE TARTRATE EYERT SCH (08:06)
[2020-04-28] MEDS: Apixaban 5 MG Tab PO SCH (08:07)
[2020-04-28] MEDS: Acetaminophen 500 MG Tab PO SCH ×2 (08:07→13:01)
[2020-04-28] MEDS: oxyCODONE 5 MG Tab PO PRN (08:17)
[2020-04-28 09:25] VITALS: BP 139/65; PULSE 56
--- NOTE | 2020-04-28 10:49 | PN ---
DATE SEEN: 04/28/2020 SUBJECTIVE: Carol Schulz is an 80-year-old female, seen today for very peculiar set of events. Hip fracture, swing bed stay, readmission due to pain and lack of pain control. Not taking medications. Therapy has some concerns about soft tissue issues. CT was performed last night, interpretation and plan. Plain x-rays were performed without complicating issue. We will check some inflammatory markers today, and observe accordingly. This morning, bright, alert, awake, pain is much improved. OBJECTIVE: CHEST: Clear. HEART: Regular. ABDOMEN: Benign. SKIN: Surgical site intact. Hip fracture with peculiar postoperative changes. PLAN: CT report is pending. Follow up with radiologist. /[id number] LAILA/BRIELLE
--- NOTE | 2020-04-28 10:51 | CT ---
INDICATION: Left hip pain, recent total hip arthroplasty 2 weeks prior. New peculiar pain and leg numbness. COMPUTERIZED TOMOGRAPHY LOWER EXTREMITY WITHOUT CONTRAST LEFT HIP: Spiral 1.25 mm axial sections were obtained through the pelvis and reveal the total hip arthroplasty on the left. The muscle bundles on the left are relatively swollen with edema present which may be on the basis of postsurgical change. Additionally along the lateral aspect of the muscles adjacent to the total hip arthroplasty, there is an abnormal fluid collection which may represent a hematoma. It measures in craniocaudad direction approximately 15 cm with a transverse diameter of approximately 5.4 cm, the AP diameter is approximately 25 mm. It does not appear to be encapsulated, but infiltrating into the adjacent soft tissues - subcutaneous fat. An abscess is felt to be less likely than a hematoma with this appearance, although a lymphocele would be another consideration. The density, however, is relatively low and would appear to favor a lymphocele rather than a hematoma. Depending upon clinical necessity, this could be tapped for confirmation. The total hip arthroplasty appears to be intact. Severe degenerative disk disease, hypertrophic degenerative changes, and a grade 2 anterolisthesis are noted at L5-S1. The appendix appeared normal visualized on axial images 49 through 67. No evidence of free air or bowel obstruction was seen. The uterus is not visualized. Urinary bladder was unremarkable. A tiny umbilical hernia including only fat is noted. Calcifications are noted in the abdominal aorta, iliac and minimally in the femoral arteries. IMPRESSION: 1. Fluid collection lateral to the left hip post surgical site may represent a lymphocele or hematoma - correlate clinically, followup as felt to be clinically necessary could be obtained with ultrasound. 2. Probable postsurgical interstitial edema in the muscles adjacent to the total hip arthroplasty on the left. 3. Hypertrophic degenerative changes disk disease at L5-S1 with grade 2 anterolisthesis. 4. Post hysterectomy. Total exam DLP was 1498.07 mGy-cm. Report was given in person to Dr. Brady JEAN
== END 2020-04-28 13:00 | disposition swing bed (61) | DRG 948 ==
LOC: FB.ED 10:55 → FB.MS 14:28
PROVIDERS: ADMIT Emergency Medicine; ATTEND Family Medicine
DX: G89.18 Other acute postprocedural pain (principal); M25.552 Pain in left hip; E78.00 Pure hypercholesterolemia, unspecified; I10 Essential (primary) hypertension; K21.9 Gastro-esophageal reflux disease without esophagitis; M81.0 Age-related osteoporosis without current pathological fracture; E66.9 Obesity, unspecified; Z96.659 Presence of unspecified artificial knee joint; Z96.619 Presence of unspecified artificial shoulder joint; Z88.8 Allergy status to other drugs, medicaments and biological substances; Z79.82 Long term (current) use of aspirin; Z79.52 Long term (current) use of systemic steroids; Z79.899 Other long term (current) drug therapy; Z98.49 Cataract extraction status, unspecified eye; Z90.710 Acquired absence of both cervix and uterus; Z68.36 Body mass index [BMI] 36.0-36.9, adult; Z79.01 Long term (current) use of anticoagulants; Z96.642 Presence of left artificial hip joint; R32 Unspecified urinary incontinence
CPT/HCPCS: 36410; 36415; 73502-LT; 73700-LT; 80048; 81001; 85027; 85651; 86140; 97110-GP; 97116-GP; 97161-GP; 97165-GO; 97530-GO; 97530-GP; 99283; 99284; A9270-GY; J7030

== ENCOUNTER 2020-04-28 12:45 | Inpatient (IN) | payer MEDICARE, OTHER ==
[2020-04-28] MEDS: oxyCODONE 5 MG Tab PO PRN (17:10)
[2020-04-28] MEDS: prednisoLONE Acetate 1% Ophth Susp 5 ML Bottle EYERT SCH ×2 (17:10→20:14)
[2020-04-28] MEDS: Apixaban 5 MG Tab PO SCH (20:13)
[2020-04-28] MEDS: Losartan 50 MG Tab PO SCH (20:13)
[2020-04-28] MEDS: Hydrochlorothiazide 12.5 MG Cap PO SCH (20:13)
[2020-04-28] MEDS: Brimonidine 0.2% Ophth Soln 5 ML Bottle EYERT SCH (20:13)
[2020-04-28] MEDS: Aspirin 81 MG Tab.EC PO SCH (20:15)
[2020-04-28] MEDS: Carboxymethylcellulose 0.5%/Glycerin 0.9% Ophth Soln 15 ML Bottle EYEBOTH SCH (20:15)
[2020-04-28] MEDS: Timolol Maleate 0.5% Ophth Soln 5 ML Bottle EYERT SCH (20:16)
[2020-04-28] MEDS: Simvastatin 20 MG Tab PO SCH (20:17)
[2020-04-28] MEDS: Latanoprost 0.005% Ophth Soln 2.5 ML Bottle EYEBOTH SCH (20:17)
[2020-04-28] MEDS: Acetaminophen 500 MG Tab PO SCH (20:17)
[2020-04-29] MEDS: oxyCODONE 5 MG Tab PO PRN (00:38)
[2020-04-29] MEDS: Acetaminophen 500 MG Tab PO SCH ×3 (08:06→21:34)
[2020-04-29] MEDS: Apixaban 5 MG Tab PO SCH (08:06)
[2020-04-29] MEDS: Polyethylene Glycol 3350 Powder 17 GM Packet PO SCH (08:07)
[2020-04-29] MEDS: Timolol Maleate 0.5% Ophth Soln 5 ML Bottle EYERT SCH ×2 (08:07→21:37)
[2020-04-29] MEDS: Calcium Carbonate 500 MG Tablet PO SCH (08:07)
[2020-04-29] MEDS: prednisoLONE Acetate 1% Ophth Susp 5 ML Bottle EYERT SCH ×4 (08:07→21:37)
[2020-04-29] MEDS: Brimonidine 0.2% Ophth Soln 5 ML Bottle EYERT SCH ×2 (08:07→21:20)
[2020-04-29] MEDS: Carboxymethylcellulose 0.5%/Glycerin 0.9% Ophth Soln 15 ML Bottle EYEBOTH SCH (21:20)
[2020-04-29] MEDS: Rivaroxaban 10 MG Tab PO SCH (21:20)
[2020-04-29] MEDS: Latanoprost 0.005% Ophth Soln 2.5 ML Bottle EYEBOTH SCH (21:25)
[2020-04-29] MEDS: Losartan 50 MG Tab PO SCH (21:33)
[2020-04-29] MEDS: Hydrochlorothiazide 12.5 MG Cap PO SCH (21:33)
[2020-04-29] MEDS: Aspirin 81 MG Tab.EC PO SCH (21:33)
[2020-04-29] MEDS: Simvastatin 20 MG Tab PO SCH (21:35)
[2020-04-30] MEDS: Calcium Carbonate 500 MG Tablet PO SCH (07:43)
[2020-04-30] MEDS: oxyCODONE 5 MG Tab PO PRN (07:59)
[2020-04-30] MEDS: Acetaminophen 500 MG Tab PO SCH ×3 (08:03→21:00)
[2020-04-30] MEDS: Polyethylene Glycol 3350 Powder 17 GM Packet PO SCH (08:04)
[2020-04-30] MEDS: Timolol Maleate 0.5% Ophth Soln 5 ML Bottle EYERT SCH ×2 (08:06→21:04)
[2020-04-30] MEDS: prednisoLONE Acetate 1% Ophth Susp 5 ML Bottle EYERT SCH ×4 (08:07→21:03)
[2020-04-30] MEDS: Brimonidine 0.2% Ophth Soln 5 ML Bottle EYERT SCH ×2 (08:11→20:57)
[2020-04-30] MEDS: Rivaroxaban 10 MG Tab PO SCH (17:10)
[2020-04-30] MEDS: Carboxymethylcellulose 0.5%/Glycerin 0.9% Ophth Soln 15 ML Bottle EYEBOTH SCH (20:56)
[2020-04-30] MEDS: Hydrochlorothiazide 12.5 MG Cap PO SCH (20:59)
[2020-04-30] MEDS: Losartan 50 MG Tab PO SCH (20:59)
[2020-04-30] MEDS: Simvastatin 20 MG Tab PO SCH (20:59)
[2020-04-30] MEDS: Aspirin 81 MG Tab.EC PO SCH (21:00)
[2020-04-30] MEDS: Latanoprost 0.005% Ophth Soln 2.5 ML Bottle EYEBOTH SCH (21:04)
[2020-05-01] MEDS: oxyCODONE 5 MG Tab PO PRN ×2 (02:39→21:51)
[2020-05-01] MEDS: Calcium Carbonate 500 MG Tablet PO SCH (08:40)
[2020-05-01] MEDS: prednisoLONE Acetate 1% Ophth Susp 5 ML Bottle EYERT SCH ×4 (08:42→20:09)
[2020-05-01] MEDS: Polyethylene Glycol 3350 Powder 17 GM Packet PO SCH (08:42)
[2020-05-01] MEDS: Brimonidine 0.2% Ophth Soln 5 ML Bottle EYERT SCH ×2 (08:42→20:07)
[2020-05-01] MEDS: Timolol Maleate 0.5% Ophth Soln 5 ML Bottle EYERT SCH ×2 (08:43→20:09)
[2020-05-01] MEDS: Acetaminophen 500 MG Tab PO SCH ×3 (08:43→20:08)
[2020-05-01] MEDS: Rivaroxaban 10 MG Tab PO SCH (17:11)
[2020-05-01] MEDS: Latanoprost 0.005% Ophth Soln 2.5 ML Bottle EYEBOTH SCH (20:07)
[2020-05-01] MEDS: Carboxymethylcellulose 0.5%/Glycerin 0.9% Ophth Soln 15 ML Bottle EYEBOTH SCH (20:07)
[2020-05-01] MEDS: Losartan 50 MG Tab PO SCH (20:08)
[2020-05-01] MEDS: Hydrochlorothiazide 12.5 MG Cap PO SCH (20:08)
[2020-05-01] MEDS: Simvastatin 20 MG Tab PO SCH (20:08)
[2020-05-01] MEDS: Aspirin 81 MG Tab.EC PO SCH (20:09)
[2020-05-02] MEDS: Calcium Carbonate 500 MG Tablet PO SCH (08:46)
[2020-05-02] MEDS: Timolol Maleate 0.5% Ophth Soln 5 ML Bottle EYERT SCH ×2 (08:46→21:13)
[2020-05-02] MEDS: prednisoLONE Acetate 1% Ophth Susp 5 ML Bottle EYERT SCH ×4 (08:47→21:13)
[2020-05-02] MEDS: Brimonidine 0.2% Ophth Soln 5 ML Bottle EYERT SCH ×2 (08:47→21:12)
[2020-05-02] MEDS: Polyethylene Glycol 3350 Powder 17 GM Packet PO SCH (08:47)
[2020-05-02] MEDS: Acetaminophen 500 MG Tab PO SCH ×3 (08:47→21:14)
[2020-05-02] MEDS: oxyCODONE 5 MG Tab PO PRN ×2 (15:48→22:19)
[2020-05-02] MEDS: Rivaroxaban 10 MG Tab PO SCH (16:59)
--- NOTE | 2020-05-02 17:09 | PCM.DCSUM1 ---
Discharge Summary - Hospital Course HPI Initial Comments: Carol had left Total hip done in [place] on 04/14, discharged to our swing bed and went home on 04/22, returned to ER on 04/24 because she couldn't get up, had acute stay for few days then changed to swing bed for PT/OT and pain management. Diagnosis: Stroke: No - Discharge Data Discharge Date: 05/03/20 ([facility]) Discharge Disposition: Home, W Home Health Agency 06 Condition: Good - Referral to Home Health Date of Face to Face Encounter: 05/02/20 Reason for Homebound Status: Left total hip Primary Care Physician: Gregorio Albarran MD Skilled Need: PT/OT. Nursing - Discharge Diagnosis/Problem(s) (1) Status post left hip replacement SNOMED Code(s): 630711465, [id number], [id number], [id number] ICD Code: Z96.642 - PRESENCE OF LEFT ARTIFICIAL HIP JOINT Status: Chronic Current Visit: Yes Onset Date: ~04/14/20 (2) Hypertension SNOMED Code(s): 06453676 ICD Code: I10 - ESSENTIAL (PRIMARY) HYPERTENSION Status: Acute Current Visit: Yes Qualifiers: Hypertension type: essential hypertension Qualified Code(s): I10 - Essential (primary) hypertension - Patient Summary/Data Consults: Consultations 04/28/20 14:01 Consult to Occupational Therapy [OT Evaluation and Treatment] [CONS] Routine Please Evaluate and Treat. OT Reason for Consult: Strengthening This query below is only for informational purposes and is not editable. Admission Diagnosis/Problem: Hip pain Consult to Physical Therapy [PT Evaluation and Treatment] [CONS] Routine Please Evaluate and Treat. PT Reason for Consult: Strengthening This query below is only for informational purposes and is not editable. Admission Diagnosis/Problem: Hip pain Hospital Course: Readmitted to Swing bed, progressed with PT/OT well, ambulating 120 feet x 2, pain improved using oxycodone 1-2 times a day. Will go home with [facility] health services on discharge. - Patient Instructions Diet: Regular Diet as Tolerated Activity: As Tolerated Showering/Bathing: May Shower Notify Provider of: Fever, Increased Pain, Nausea and/or Vomiting - Discharge Plan *PRESCRIPTION DRUG MONITORING PROGRAM REVIEWED*: Not Applicable *COPY OF PRESCRIPTION DRUG MONITORING REPORT IN PATIENT JULISA: Not Applicable Home Medications: Home Meds Aspirin [Halfprin] 81 mg PO BEDTIME 03/09/16 [History] Calcium Carbonate/Vitamin D3 [Os-Aman 500+D] 1 each PO WITHBREAKFAST 03/09/16 [History] Cetirizine [ZyrTEC] 10 mg PO DAILY PRN 03/09/16 [History] Multivit-Min/FA/Lycopen/Lutein [Centrum Silver Tablet] 1 each PO DAILY 03/09/16 [History] Simvastatin [Zocor] 20 mg PO BEDTIME 03/09/16 [History] Losartan/Hydrochlorothiazide [Losartan-HCTZ 50-12.5 MG] 1 each PO BEDTIME 04/24/19 [History] Brimonidine Tartrate/Timolol [Combigan 0.2%-0.5% Eye Drops] 1 drop EYERT BID 04/18/20 [History] Carboxymethylcellulos/Glycerin [Refresh Optive] 1 drop EYEBOTH BEDTIME 04/18/20 [History] Carboxymethylcellulose Sodium [Refresh Tears] 1 drop EYEBOTH Q2H PRN 04/18/20 [History] Latanoprost [Xalatan 0.005% Ophth Soln] 1 drop EYEBOTH BEDTIME 04/18/20 [History] Sennosides/Docusate Sodium [Senna-S] 1 tab PO BID 04/18/20 [History] polyethylene glycoL 3350 [MiraLAX] 17 gm PO DAILY 04/18/20 [History] prednisoLONE acetate [Pred Forte 1% Ophth Susp] 1 drop EYERT QID 04/18/20 [History] oxyCODONE 5 mg PO Q6H PRN #20 tab 04/22/20 [Rx] Acetaminophen [Tylenol Extra Strength] 1,000 mg PO TID 04/28/20 [History] Rivaroxaban [Xarelto] 10 mg PO DAILY 05/03/20 [History] - Discharge Summary/Plan Comment DC Time >30 min.: No - General Info Date of Service: 05/02/20 Subjective Update: She is feeling pretty good, pain is well controlled, using Oxycodone 1-2 times a day for pain. No shortness of breath, chest pain, nausea, vomiting or diarrhea. Incision is well healed. - Patient Data Vitals - Most Recent: Last Vital Signs Temp 98.0 F 05/02/20 09:00 Pulse 52 L 05/02/20 09:00 Resp 16 05/02/20 09:00 BP 117/62 05/02/20 09:00 Pulse Ox 96 05/02/20 09:00 Weight - Most Recent: 221 lb 3.2 oz Med Orders - Current: Current Medications Acetaminophen (Tylenol Extra Strength) 1,000 mg PO TID [facility] Last Admin: 05/02/20 12:59 Dose: 1,000 mg Documented by: Aspirin (Halfprin) 81 mg PO BEDTIME [facility] Last Admin: 05/01/20 20:09 Dose: 81 mg Documented by: Brimonidine Tartrate (Alphagan 0.2% Ophth Soln) 0 ml EYERT BID [facility] Last Admin: 05/02/20 08:47 Dose: 1 drop Documented by: Calcium Carbonate/Glycine (Oyster Shell Calcium) 500 mg PO WITHBREAKFAST [facility] Last Admin: 05/02/20 08:46 Dose: 500 mg Documented by: Carboxymethylcellulose (Refresh Optive) 0 ml EYEBOTH BEDTIME [facility] Last Admin: 05/01/20 20:07 Dose: 1 drop Documented by: Hydrochlorothiazide (Hydrochlorothiazide) 12.5 mg PO BEDTIME [facility] Last Admin: 05/01/20 20:08 Dose: 12.5 mg Documented by: Latanoprost (Xalatan 0.005% Ophth Soln) 0 ml EYEBOTH BEDTIME [facility] Last Admin: 05/01/20 20:07 Dose: 1 drop Documented by: Losartan Potassium (Cozaar) 50 mg PO BEDTIME [facility] Last Admin: 05/01/20 20:08 Dose: 50 mg Documented by: Oxycodone HCl (Oxycodone) 5 mg PO Q6H PRN PRN Reason: pain 4-10/10 Last Admin: 05/02/20 15:48 Dose: 5 mg Documented by: Polyethylene Glycol (Miralax) 17 gm PO DAILY [facility] Last Admin: 05/02/20 08:47 Dose: Not Given Documented by: Prednisolone Acetate (Pred Forte 1% Ophth Susp) 0 ml EYERT QID [facility] Last Admin: 05/02/20 16:58 Dose: 1 drop Documented by: Rivaroxaban (Xarelto) 10 mg PO WITHDINNER [facility] Last Admin: 05/02/20 16:59 Dose: 10 mg Documented by: Senna/Docusate Sodium (Senna Plus) 1 tab PO BID [facility] Last Admin: 05/02/20 08:47 Dose: Not Given Documented by: Simvastatin (Zocor) 20 mg PO BEDTIME [facility] Last Admin: 05/01/20 20:08 Dose: 20 mg Documented by: Timolol Maleate (Timoptic 0.5% Ophth Soln) 0 ml EYERT BID [facility] Last Admin: 05/02/20 08:46 Dose: 1 drop Documented by: Discontinued Medications Apixaban (Eliquis) 2.5 mg PO BID [facility] Last Admin: 04/29/20 08:06 Dose: 2.5 mg Documented by: Non-Formulary Medication (Brimonidine Tartrate/Timolol [Combigan 0.2%-0.5% Eye Drops]) 1 drop EYERT BID [facility] - Exam General: Reports: Alert, Oriented, Cooperative, No Acute Distress Lungs: Reports: Clear to Auscultation, Normal Respiratory Effort Cardiovascular: Reports: Regular Rate, Regular Rhythm GI/Abdominal Exam: Normal Bowel Sounds, Soft, Non-Tender, No Distention Extremities: No Pedal Edema Skin: Reports: Warm, Dry, Intact Wound/Incisions: Reports: Healing Well (left hip) Psy/Mental Status: Reports: Alert, Normal Affect, Normal Mood
[2020-05-02] MEDS: Carboxymethylcellulose 0.5%/Glycerin 0.9% Ophth Soln 15 ML Bottle EYEBOTH SCH (21:13)
[2020-05-02] MEDS: Aspirin 81 MG Tab.EC PO SCH (21:14)
[2020-05-02] MEDS: Simvastatin 20 MG Tab PO SCH (21:14)
[2020-05-02] MEDS: Hydrochlorothiazide 12.5 MG Cap PO SCH (21:15)
[2020-05-02] MEDS: Losartan 50 MG Tab PO SCH (21:15)
[2020-05-02] MEDS: Latanoprost 0.005% Ophth Soln 2.5 ML Bottle EYEBOTH SCH (21:16)
[2020-05-03 05:16] VITALS: BP 150/80; PULSE 82
[2020-05-03] MEDS: Acetaminophen 500 MG Tab PO SCH ×2 (10:28→14:07)
[2020-05-03] MEDS: Calcium Carbonate 500 MG Tablet PO SCH (10:28)
[2020-05-03] MEDS: prednisoLONE Acetate 1% Ophth Susp 5 ML Bottle EYERT SCH ×2 (10:29→14:07)
[2020-05-03] MEDS: Brimonidine 0.2% Ophth Soln 5 ML Bottle EYERT SCH (10:30)
[2020-05-03] MEDS: Timolol Maleate 0.5% Ophth Soln 5 ML Bottle EYERT SCH (10:30)
[2020-05-03] MEDS: Polyethylene Glycol 3350 Powder 17 GM Packet PO SCH (10:30)
== END 2020-05-03 11:10 | disposition home health service (06) | DRG 561 ==
LOC: FB.MS 13:00
PROVIDERS: ADMIT Family Medicine; ATTEND Family Medicine
DX: Z47.1 Aftercare following joint replacement surgery (principal); Z96.642 Presence of left artificial hip joint; I10 Essential (primary) hypertension; M25.552 Pain in left hip
CPT/HCPCS: 97110-GO; 97110-GP; 97116-GP; 97530-GO; 97535-GO; A9270-GY

== ENCOUNTER 2022-01-13 11:52 | Emergency (ER) | payer MEDICARE, OTHER ==
[2022-01-13] MEDS ORDERED: oxyCODONE 5 MG Tab PO ONE ×2 (12:08→12:56)
[2022-01-13] MEDS ORDERED: Lidocaine 4% 1 each Patch TOP STA (14:02)
[2022-01-13 20:09] VITALS: BP 149/78; PULSE 72
== END 2022-01-13 14:35 | disposition home or self-care (01) ==
LOC: FB.ED 11:52
DX: S29.9XXA Unspecified injury of thorax, initial encounter (principal); E78.00 Pure hypercholesterolemia, unspecified; I10 Essential (primary) hypertension; K21.9 Gastro-esophageal reflux disease without esophagitis; Z88.8 Allergy status to other drugs, medicaments and biological substances; Z79.82 Long term (current) use of aspirin; Z79.899 Other long term (current) drug therapy; Z79.01 Long term (current) use of anticoagulants; W01.0XXA Fall on same level from slipping, tripping and stumbling without subsequent striking against object, initial encounter
CPT/HCPCS: 99284; A9270-GY

== ENCOUNTER 2024-06-22 15:28 | Emergency (ER) | payer MEDICARE, OTHER ==
[2024-06-22 15:56] LABS: BASOPHILS PERCENT AUTO 0.4 % (0.2-1.5); EOSINOPHILS PERCENT AUTO 0.7 % (0.6-8.1); HEMOGLOBIN 12.8 g/dL (11.4-15.5); LYMPHOCYTES ABSOLUTE AUTO 0.6 x10-3/uL (1.0-4.4); LYMPHOCYTES PERCENT AUTO 10.1 % (18.4-52.1); MEAN CORPUSCULAR HEMOGLOBIN 31.1 pg (23.9-33.9); MEAN CORPUSCULAR HGB CONC 33.8 g/dL (31.9-34.8); MEAN CORPUSCULAR VOLUME 92.1 fL (76.7-100.5); MEAN PLATELET VOLUME 8.5 fL (7.1-12.4); MONOCYTES ABSOLUTE AUTO 0.6 x10-3/uL (0.3-1.0); MONOCYTES PERCENT AUTO 11.5 % (4.4-15.7); NEUTROPHILS ABSOLUTE AUTO 4.2 x10-3/uL (1.5-6.3); NEUTROPHILS PERCENT AUTO 77.3 % (30.8-76.2); PLATELET COUNT,PLT 131 x10(3)uL (151-488); RED BLOOD CELL COUNT 4.12 x10(6)uL (3.60-5.20); RED CELL DISTRIBUTION WIDTH 13.5 % (12.3-16.5); WHITE BLOOD CELL COUNT,WBC 5.5 x10-3/uL (3.0-10.3)
[2024-06-22 16:04] LABS: ALANINE AMINOTRANSFERASE,ALT 24 U/L (12-36); ALBUMIN 3.4 g/dL (3.2-4.6); ALKALINE PHOSPHATASE 64 IU/L (56-112); ASPARTATE AMNIOTRANSFERASE,AST 18 IU/L (5-25); BILIRUBIN TOTAL 0.4 mg/dL (0.1-1.3); BLOOD UREA NITROGEN,BUN 45 mg/dL (7-18); BUN/CREATININE RATIO 18.8 (9-20); CALCIUM 9.6 mg/dL (8.6-10.2); CARBON DIOXIDE,CO2 32 mmol/L (21-32); CHLORIDE,CL 99 mmol/L (100-110); ESTIMATED GFR 19 mL/min (>60); GLUCOSE RANDOM 119 mg/dL (80-116); POTASSIUM,K 4.3 mmol/L (3.5-5.3); PROTEIN TOTAL,TP 6.8 g/dL (6.0-8.0); SODIUM,NA 136 mmol/L (135-145)
[2024-06-22 16:09] LABS: CREATININE 2.4 mg/dL (0.55-1.02)
[2024-06-22] MEDS: HYDROmorphone 2 MG/ML SDV IVPUSH ONE (16:18)
[2024-06-22] MEDS: Sodium Chloride 0.9% 1,000 ML IV ONE (16:18)
[2024-06-22] MEDS: HYDROmorphone 2 MG/ML SDV IVPUSH PRN (21:40)
[2024-06-22 22:06] LABS: BILIRUBIN,URINE NEGATIVE (NEGATIVE); GLUCOSE,URINE NORMAL (NORMAL); KETONES,URINE NEGATIVE (NEGATIVE); LEUKOCYTE ESTERASE,URINE NEGATIVE (NEGATIVE); NITRITE,URINE NEGATIVE (NEGATIVE); OCCULT BLOOD,URINE NEGATIVE (NEGATIVE); PROTEIN,URINE TRACE mg/dL (NEGATIVE); UROBILINOGEN,URINE NORMAL (NEGATIVE)
[2024-06-22 22:12] LABS: APPEARANCE,URINE CLEAR (CLEAR); COLOR,URINE YELLOW (YELLOW)
[2024-06-22 22:24] LABS: RBC,URINE 0-5 (0-5); SQUAMOUS EPITHELIAL CELLS,UR FEW (NS,R,O); WBC,URINE 0-5 (0-5)
[2024-06-22 22:25] LABS: BACTERIA,URINE OCCASIONAL (NS); HYALINE CASTS,URINE FEW (NS)
[2024-06-23] MEDS: Sodium Chloride 0.9% 1,000 ML IV SCH (03:46)
[2024-06-23 07:50] VITALS: BP 128/58; PULSE 70
[2024-06-23 08:03] LABS: BASOPHILS PERCENT AUTO 0.2 % (0.2-1.5); EOSINOPHILS PERCENT AUTO 0.5 % (0.6-8.1); HEMATOCRIT 33.9 % (34.2-48.2); HEMOGLOBIN 11.2 g/dL (11.4-15.5); LYMPHOCYTES ABSOLUTE AUTO 0.5 x10-3/uL (1.0-4.4); LYMPHOCYTES PERCENT AUTO 8.5 % (18.4-52.1); MEAN CORPUSCULAR HEMOGLOBIN 30.8 pg (23.9-33.9); MEAN CORPUSCULAR HGB CONC 33.1 g/dL (31.9-34.8); MEAN PLATELET VOLUME 8.5 fL (7.1-12.4); MONOCYTES ABSOLUTE AUTO 0.8 x10-3/uL (0.3-1.0); MONOCYTES PERCENT AUTO 12.1 % (4.4-15.7); NEUTROPHILS ABSOLUTE AUTO 5.1 x10-3/uL (1.5-6.3); NEUTROPHILS PERCENT AUTO 78.7 % (30.8-76.2); PLATELET COUNT,PLT 117 x10(3)uL (151-488); RED BLOOD CELL COUNT 3.64 x10(6)uL (3.60-5.20); WHITE BLOOD CELL COUNT,WBC 6.5 x10-3/uL (3.0-10.3)
[2024-06-23 08:08] LABS: BLOOD UREA NITROGEN,BUN 52 mg/dL (7-18); BUN/CREATININE RATIO 18.6 (9-20); CALCIUM 8.5 mg/dL (8.6-10.2); CARBON DIOXIDE,CO2 31 mmol/L (21-32); CHLORIDE,CL 104 mmol/L (100-110); ESTIMATED GFR 16 mL/min (>60); GLUCOSE RANDOM 120 mg/dL (80-116); POTASSIUM,K 4.6 mmol/L (3.5-5.3); SODIUM,NA 138 mmol/L (135-145)
[2024-06-23 08:11] LABS: CREATININE 2.8 mg/dL (0.55-1.02)
[2024-06-23] MEDS: Sodium Chloride 0.9% 1,000 ML IV ONE (08:19)
== END 2024-06-23 13:34 ==
LOC: FB.ED 15:28
DX: I10 Essential (primary) hypertension (principal); E78.00 Pure hypercholesterolemia, unspecified; K21.9 Gastro-esophageal reflux disease without esophagitis; Z90.710 Acquired absence of both cervix and uterus; Z79.899 Other long term (current) drug therapy; Z79.82 Long term (current) use of aspirin; Z88.8 Allergy status to other drugs, medicaments and biological substances; W01.0XXA Fall on same level from slipping, tripping and stumbling without subsequent striking against object, initial encounter
CPT/HCPCS: 36415; 73562; 80048; 80053; 81001; 84484; 85025; 93005; J1171; J7030; 51702; 51798; 96361; 96374; 96376; 99285-25

== ENCOUNTER 2024-06-26 09:25 | Inpatient (IN) | payer MEDICARE, OTHER ==
[2024-06-26] MEDS ORDERED: traMADol 50 MG Tab PO PRN (14:49)
[2024-06-26] MEDS: Acetaminophen 500 MG Tab PO SCH (15:16)
[2024-06-26 15:55] LABS: BASOPHILS PERCENT AUTO 0.2 % (0.2-1.5); EOSINOPHILS ABSOLUTE AUTO 0.1 x10-3/uL (0.0-0.8); EOSINOPHILS PERCENT AUTO 1.3 % (0.6-8.1); HEMATOCRIT 28.6 % (34.2-48.2); HEMOGLOBIN 9.8 g/dL (11.4-15.5); LYMPHOCYTES ABSOLUTE AUTO 0.5 x10-3/uL (1.0-4.4); LYMPHOCYTES PERCENT AUTO 7.6 % (18.4-52.1); MEAN CORPUSCULAR HEMOGLOBIN 31.3 pg (23.9-33.9); MEAN CORPUSCULAR HGB CONC 34.1 g/dL (31.9-34.8); MEAN CORPUSCULAR VOLUME 91.6 fL (76.7-100.5); MEAN PLATELET VOLUME 7.8 fL (7.1-12.4); MONOCYTES ABSOLUTE AUTO 0.8 x10-3/uL (0.3-1.0); MONOCYTES PERCENT AUTO 11.8 % (4.4-15.7); NEUTROPHILS ABSOLUTE AUTO 5.3 x10-3/uL (1.5-6.3); NEUTROPHILS PERCENT AUTO 79.1 % (30.8-76.2); PLATELET COUNT,PLT 147 x10(3)uL (151-488); RED BLOOD CELL COUNT 3.12 x10(6)uL (3.60-5.20); RED CELL DISTRIBUTION WIDTH 13.5 % (12.3-16.5); WHITE BLOOD CELL COUNT,WBC 6.6 x10-3/uL (3.0-10.3)
[2024-06-26 15:57] LABS: BLOOD UREA NITROGEN,BUN 19 mg/dL (7-18); BUN/CREATININE RATIO 17.3 (9-20); CALCIUM 7.8 mg/dL (8.6-10.2); CARBON DIOXIDE,CO2 28 mmol/L (21-32); CHLORIDE,CL 103 mmol/L (100-110); CREATININE 1.1 mg/dL (0.55-1.02); EST CRCL DRUG DOSING (CG) 34.26 mL/min; ESTIMATED GFR 50 mL/min (>60); GLUCOSE RANDOM 101 mg/dL (80-116); POTASSIUM,K 3.5 mmol/L (3.5-5.3); SODIUM,NA 140 mmol/L (135-145)
[2024-06-26 16:03] LABS: A/G RATIO 0.7; ALANINE AMINOTRANSFERASE,ALT 19 U/L (12-36); ALBUMIN 2.3 g/dL (3.2-4.6); ALKALINE PHOSPHATASE 54 IU/L (56-112); ASPARTATE AMNIOTRANSFERASE,AST 35 IU/L (5-25); BILIRUBIN TOTAL 0.6 mg/dL (0.1-1.3); PROTEIN TOTAL,TP 5.7 g/dL (6.0-8.0)
[2024-06-26] MEDS: Rivaroxaban 10 MG Tab PO SCH (16:13)
[2024-06-26 16:20] LABS: BILIRUBIN,URINE NEGATIVE (NEGATIVE); GLUCOSE,URINE 100 mg/dL (NORMAL); KETONES,URINE NEGATIVE (NEGATIVE); LEUKOCYTE ESTERASE,URINE SMALL (NEGATIVE); NITRITE,URINE NEGATIVE (NEGATIVE); OCCULT BLOOD,URINE LARGE (NEGATIVE); PROTEIN,URINE 30 mg/dL (NEGATIVE); UROBILINOGEN,URINE NORMAL (NEGATIVE)
[2024-06-26 16:25] LABS: APPEARANCE,URINE CLEAR (CLEAR); COLOR,URINE YELLOW (YELLOW)
[2024-06-26 16:26] LABS: BACTERIA,URINE MODERATE (NS); SQUAMOUS EPITHELIAL CELLS,UR FEW (NS,R,O); WBC,URINE 0-5 (0-5)
[2024-06-26] MEDS: Latanoprost 0.005% Ophth Soln 2.5 ML Bottle EYEBOTH SCH (20:25)
[2024-06-26] MEDS: Brimonidine 0.2% Ophth Soln 5 ML Bottle EYERT SCH (20:52)
[2024-06-26] MEDS: Timolol Maleate 0.5% Ophth Soln 5 ML Bottle EYERT SCH (20:52)
[2024-06-27] MEDS: QUEtiapine 25 MG Tab PO SCH (10:30)
[2024-06-27] MEDS: atorvaSTATin 40 MG Tab PO SCH (19:59)
[2024-07-02] MEDS: QUEtiapine 25 MG Tab PO SCH (20:58)
[2024-07-03] MEDS: Acetaminophen 500 MG Tab PO SCH (03:54)
[2024-07-03] MEDS: Melatonin 3 MG Tab PO SCH (20:44)
[2024-07-06] MEDS: Tuberculin, PPD 5 Units/0.1 ML 1 ML MDV IDERM ONE (09:53)
[2024-07-06 11:28] VITALS: BP 177/71; PULSE 56
== END 2024-07-06 10:50 | DRG 560 ==
LOC: FB.MS 12:22
PROVIDERS: ADMIT Family Medicine; ATTEND Family Medicine
DX: S72.402D Unspecified fracture of lower end of left femur, subsequent encounter for closed fracture with routine healing (principal); D62 Acute posthemorrhagic anemia; F03.92 Unspecified dementia, unspecified severity, with psychotic disturbance; R53.1 Weakness; I10 Essential (primary) hypertension; E78.00 Pure hypercholesterolemia, unspecified; K21.9 Gastro-esophageal reflux disease without esophagitis; M81.0 Age-related osteoporosis without current pathological fracture; E66.9 Obesity, unspecified; Z96.649 Presence of unspecified artificial hip joint; Z96.659 Presence of unspecified artificial knee joint; Z96.619 Presence of unspecified artificial shoulder joint; W19.XXXD Unspecified fall, subsequent encounter; Z79.899 Other long term (current) drug therapy; Z88.8 Allergy status to other drugs, medicaments and biological substances; Z79.01 Long term (current) use of anticoagulants; Z68.36 Body mass index [BMI] 36.0-36.9, adult; Z98.49 Cataract extraction status, unspecified eye; Z90.710 Acquired absence of both cervix and uterus
CPT/HCPCS: 36415; 80053; 81001; 85025; 86580; 87086; 97110-GP; 97161-GP; 97165-GO; 97530-GP; 97535-GO; 97542-GO; 99306; 99315; A9270-GY

== ENCOUNTER 2024-09-14 16:37 | Emergency (ER) | payer MEDICARE, OTHER ==
[2024-09-14 16:53] VITALS: BP 148/121; PULSE 83
[2024-09-14 17:09] LABS: HEMATOCRIT 36.5 % (34.2-48.2); HEMOGLOBIN 12.1 g/dL (11.4-15.5); MEAN CORPUSCULAR HEMOGLOBIN 30.7 pg (23.9-33.9); MEAN CORPUSCULAR HGB CONC 33.2 g/dL (31.9-34.8); MEAN CORPUSCULAR VOLUME 92.4 fL (76.7-100.5); MEAN PLATELET VOLUME 7.1 fL (7.1-12.4); PLATELET COUNT,PLT 166 x10(3)uL (151-488); RED BLOOD CELL COUNT 3.95 x10(6)uL (3.60-5.20); RED CELL DISTRIBUTION WIDTH 14.6 % (12.3-16.5); WHITE BLOOD CELL COUNT,WBC 8.8 x10-3/uL (3.0-10.3)
[2024-09-14 17:15] LABS: BLOOD UREA NITROGEN,BUN 21 mg/dL (7-18); CALCIUM 9.8 mg/dL (8.6-10.2); CARBON DIOXIDE,CO2 31 mmol/L (21-32); CHLORIDE,CL 100 mmol/L (100-110); ESTIMATED GFR 56 mL/min (>60); GLUCOSE RANDOM 129 mg/dL (80-116); POTASSIUM,K 4.5 mmol/L (3.5-5.3); SODIUM,NA 136 mmol/L (135-145)
[2024-09-14 17:21] LABS: ALANINE AMINOTRANSFERASE,ALT 14 U/L (12-36); ALBUMIN 3.3 g/dL (3.2-4.6); ALKALINE PHOSPHATASE 88 IU/L (56-112); ASPARTATE AMNIOTRANSFERASE,AST 18 IU/L (5-25); BILIRUBIN TOTAL 0.6 mg/dL (0.1-1.3); PROTEIN TOTAL,TP 6.5 g/dL (6.0-8.0)
[2024-09-14 17:33] LABS: BAND PERCENT MAN 1 % (0-6); LYMPHOCYTES PERCENT MAN 1 % (13-37); MONOCYTES PERCENT MAN 3 % (4-12); SEG NEUTROPHILS PERCENT MAN 95 % (46-82)
== END 2024-09-14 18:11 ==
LOC: FB.ED 16:37
DX: B34.9 Viral infection, unspecified (principal); I10 Essential (primary) hypertension; E78.00 Pure hypercholesterolemia, unspecified; K21.9 Gastro-esophageal reflux disease without esophagitis; Z90.710 Acquired absence of both cervix and uterus; Z79.899 Other long term (current) drug therapy
CPT/HCPCS: 36415; 71045; 80053; 84484; 85025; 87428-QW; 93005; 99284

== ENCOUNTER 2024-11-28 04:55 | Emergency (ER) | payer MEDICARE, OTHER ==
[2024-11-28 05:36] LABS: BASOPHILS PERCENT AUTO 0.6 % (0.2-1.5); EOSINOPHILS ABSOLUTE AUTO 0.2 x10-3/uL (0.0-0.8); HEMATOCRIT 36.2 % (34.2-48.2); HEMOGLOBIN 11.9 g/dL (11.4-15.5); LYMPHOCYTES ABSOLUTE AUTO 0.7 x10-3/uL (1.0-4.4); LYMPHOCYTES PERCENT AUTO 13.5 % (18.4-52.1); MEAN CORPUSCULAR HEMOGLOBIN 30.4 pg (23.9-33.9); MEAN CORPUSCULAR HGB CONC 32.9 g/dL (31.9-34.8); MEAN CORPUSCULAR VOLUME 92.3 fL (76.7-100.5); MEAN PLATELET VOLUME 7.7 fL (7.1-12.4); MONOCYTES ABSOLUTE AUTO 0.6 x10-3/uL (0.3-1.0); MONOCYTES PERCENT AUTO 12.3 % (4.4-15.7); NEUTROPHILS ABSOLUTE AUTO 3.4 x10-3/uL (1.5-6.3); NEUTROPHILS PERCENT AUTO 69.6 % (30.8-76.2); PLATELET COUNT,PLT 157 x10(3)uL (151-488); RED CELL DISTRIBUTION WIDTH 16.4 % (12.3-16.5); WHITE BLOOD CELL COUNT,WBC 4.8 x10-3/uL (3.0-10.3)
[2024-11-28 05:41] LABS: BLOOD UREA NITROGEN,BUN 15 mg/dL (7-18); CALCIUM 9.2 mg/dL (8.6-10.2); CARBON DIOXIDE,CO2 30 mmol/L (21-32); CHLORIDE,CL 106 mmol/L (100-110); ESTIMATED GFR 56 mL/min (>60); GLUCOSE RANDOM 104 mg/dL (80-116); POTASSIUM,K 4.2 mmol/L (3.5-5.3); SODIUM,NA 142 mmol/L (135-145)
[2024-11-28 05:44] LABS: RED BLOOD CELL COUNT 3.93 x10(6)uL (3.60-5.20)
[2024-11-28 05:47] LABS: A/G RATIO 0.9; ALANINE AMINOTRANSFERASE,ALT 20 U/L (12-36); ALBUMIN 3.3 g/dL (3.2-4.6); ALKALINE PHOSPHATASE 64 IU/L (56-112); ASPARTATE AMNIOTRANSFERASE,AST 26 IU/L (5-25); BILIRUBIN TOTAL 0.7 mg/dL (0.1-1.3); PROTEIN TOTAL,TP 6.8 g/dL (6.0-8.0)
[2024-11-28 05:48] LABS: TROPONIN I 376.5 pg/mL (4.0-60.3)
[2024-11-28 05:49] LABS: C-REACTIVE PROTEIN 4.22 mg/dL (<0.50)
[2024-11-28 05:54] LABS: BILIRUBIN,URINE NEGATIVE (NEGATIVE); GLUCOSE,URINE NORMAL (NORMAL); KETONES,URINE NEGATIVE (NEGATIVE); LEUKOCYTE ESTERASE,URINE SMALL (NEGATIVE); NITRITE,URINE NEGATIVE (NEGATIVE); OCCULT BLOOD,URINE LARGE (NEGATIVE); PROTEIN,URINE NEGATIVE (NEGATIVE); UROBILINOGEN,URINE NORMAL (NEGATIVE)
[2024-11-28 06:01] LABS: APPEARANCE,URINE SLIGHTLY CLOUDY (CLEAR); BACTERIA,URINE FEW (NS); COLOR,URINE YELLOW (YELLOW); SQUAMOUS EPITHELIAL CELLS,UR FEW (NS,R,O); WBC,URINE 0-5 (0-5)
[2024-11-28 08:08] VITALS: PULSE 66
[2024-11-28 10:06] VITALS: BP 182/84
== END 2024-11-28 09:40 | disposition home or self-care (01) ==
LOC: FB.ED 04:55
DX: R44.9 Unspecified symptoms and signs involving general sensations and perceptions (principal); I10 Essential (primary) hypertension; E78.00 Pure hypercholesterolemia, unspecified; E66.9 Obesity, unspecified; Z68.35 Body mass index [BMI] 35.0-35.9, adult; K21.9 Gastro-esophageal reflux disease without esophagitis; Z79.899 Other long term (current) drug therapy; W18.30XA Fall on same level, unspecified, initial encounter
CPT/HCPCS: 36415; 70450; 80053; 81001; 84484; 85025; 86140; 93005; 93010; 99284; 99285

== ENCOUNTER 2024-11-30 10:55 | Inpatient (IN) | payer MEDICARE, OTHER ==
[2024-11-30] MEDS ORDERED: Sodium Chloride 0.9% 10 ML Syringe FLUSH PRN (11:42)
[2024-11-30 11:53] LABS: BASOPHILS PERCENT AUTO 0.4 % (0.2-1.5); EOSINOPHILS ABSOLUTE AUTO 0.2 x10-3/uL (0.0-0.8); EOSINOPHILS PERCENT AUTO 2.5 % (0.6-8.1); HEMATOCRIT 34.3 % (34.2-48.2); HEMOGLOBIN 11.6 g/dL (11.4-15.5); LYMPHOCYTES ABSOLUTE AUTO 0.6 x10-3/uL (1.0-4.4); LYMPHOCYTES PERCENT AUTO 9.3 % (18.4-52.1); MEAN CORPUSCULAR HEMOGLOBIN 30.6 pg (23.9-33.9); MEAN CORPUSCULAR HGB CONC 33.7 g/dL (31.9-34.8); MEAN PLATELET VOLUME 7.5 fL (7.1-12.4); MONOCYTES ABSOLUTE AUTO 0.7 x10-3/uL (0.3-1.0); MONOCYTES PERCENT AUTO 10.9 % (4.4-15.7); NEUTROPHILS ABSOLUTE AUTO 4.9 x10-3/uL (1.5-6.3); NEUTROPHILS PERCENT AUTO 76.9 % (30.8-76.2); PLATELET COUNT,PLT 183 x10(3)uL (151-488); RED CELL DISTRIBUTION WIDTH 16.3 % (12.3-16.5); WHITE BLOOD CELL COUNT,WBC 6.4 x10-3/uL (3.0-10.3)
[2024-11-30 11:55] LABS: BLOOD UREA NITROGEN,BUN 15 mg/dL (7-18); BUN/CREATININE RATIO 16.7 (9-20); CALCIUM 9.8 mg/dL (8.6-10.2); CARBON DIOXIDE,CO2 29 mmol/L (21-32); CHLORIDE,CL 105 mmol/L (100-110); CREATININE 0.9 mg/dL (0.55-1.02); ESTIMATED GFR 63 mL/min (>60); GLUCOSE RANDOM 98 mg/dL (80-116); POTASSIUM,K 4.5 mmol/L (3.5-5.3); SODIUM,NA 142 mmol/L (135-145)
[2024-11-30 11:58] LABS: BILIRUBIN,URINE NEGATIVE (NEGATIVE); GLUCOSE,URINE NORMAL (NORMAL); KETONES,URINE NEGATIVE (NEGATIVE); LEUKOCYTE ESTERASE,URINE NEGATIVE (NEGATIVE); NITRITE,URINE NEGATIVE (NEGATIVE); OCCULT BLOOD,URINE LARGE (NEGATIVE); PROTEIN,URINE 30 mg/dL (NEGATIVE); UROBILINOGEN,URINE NORMAL (NEGATIVE)
[2024-11-30 12:01] LABS: ALANINE AMINOTRANSFERASE,ALT 19 U/L (12-36); ALBUMIN 3.4 g/dL (3.2-4.6); ALKALINE PHOSPHATASE 69 IU/L (56-112); ASPARTATE AMNIOTRANSFERASE,AST 26 IU/L (5-25); BILIRUBIN TOTAL 0.6 mg/dL (0.1-1.3); MAGNESIUM 1.7 mg/dL (1.8-2.5); PROTEIN TOTAL,TP 6.9 g/dL (6.0-8.0)
[2024-11-30 12:02] LABS: APPEARANCE,URINE SLIGHTLY CLOUDY (CLEAR); COLOR,URINE YELLOW (YELLOW)
[2024-11-30 12:07] LABS: BACTERIA,URINE FEW (NS); RED BLOOD CELL COUNT 3.77 x10(6)uL (3.60-5.20); SQUAMOUS EPITHELIAL CELLS,UR FEW (NS,R,O); WBC,URINE 0-5 (0-5)
[2024-11-30] MEDS: Magnesium Sulf/Wat 2 GM/50 mL 2 GM in Premix Bag 1 BAG IV ONE (17:03)
[2024-11-30] MEDS ORDERED: Non-Formulary Medication 1 Each (Amoxicillin [Amoxicillin] 500 MG Capsule) PO PRN (17:10)
[2024-11-30] MEDS ORDERED: Acetaminophen 650 MG Supp RECTAL PRN (17:18)
[2024-11-30 18:29] LABS: BASE EXCESS VENOUS,POC 8 mmol/L (-2 - 3+); PCO2 VENOUS,POC 60 mmHg (41-51); PH VENOUS,POC 7.38 pH Units (7.32-7.43)
[2024-11-30 18:55] LABS: TSH ULTRASENSITIVE 3.53 IU/mL (0.36-3.74)
[2024-11-30] MEDS: Latanoprost 0.005% Ophth Soln 2.5 ML Bottle EYEBOTH SCH (20:44)
[2024-11-30] MEDS: atorvaSTATin 40 MG Tab PO SCH (20:45)
[2024-11-30] MEDS: Calcium Carbonate 500 MG Tablet PO SCH (20:45)
[2024-11-30] MEDS: Aspirin 81 MG Tab.EC PO SCH (20:45)
[2024-11-30] MEDS: Timolol Maleate 0.5% Ophth Soln 5 ML Bottle EYERT SCH (20:45)
[2024-11-30] MEDS: Brimonidine 0.2% Ophth Soln 5 ML Bottle EYERT SCH (20:47)
[2024-11-30] MEDS ORDERED: Non-Formulary Medication 1 Each (Calcium Carbonate/Vitamin D3 [Calcium 600 Mg-Vit D3 10mcg PO SCH (21:00)
[2024-11-30] MEDS: Acetaminophen 325 MG Tab PO PRN (21:20)
[2024-11-30 21:44] LABS: AMPHETAMINES SCREEN, URINE NEGATIVE (NEGATIVE); BARBITURATE SCREEN,URINE NEGATIVE (NEGATIVE); BENZODIAZEPINES SCREEN,URINE NEGATIVE (NEGATIVE); BUPRENORPHINE SCREEN,URINE NEGATIVE (NEGATIVE); METHADONE SCREEN, URINE NEGATIVE (NEGATIVE); METHAMPHETAMINE SCREEN, URINE NEGATIVE (NEGATIVE); OXYCODONE SCREEN,URINE NEGATIVE (NEGATIVE); THC SCREEN,URINE NEGATIVE (NEGATIVE)
[2024-12-01 06:35] LABS: INFLUENZA A NAA NEGATIVE (NEGATIVE); INFLUENZA B NAA NEGATIVE (NEGATIVE); RESPIRATORY SYNCYTIAL VIR NAA NEGATIVE (NEGATIVE)
[2024-12-01 06:36] LABS: HEMATOCRIT 34.7 % (34.2-48.2); HEMOGLOBIN 11.9 g/dL (11.4-15.5); MEAN CORPUSCULAR HEMOGLOBIN 31.1 pg (23.9-33.9); MEAN CORPUSCULAR HGB CONC 34.2 g/dL (31.9-34.8); MEAN CORPUSCULAR VOLUME 90.9 fL (76.7-100.5); RED BLOOD CELL COUNT 3.81 x10(6)uL (3.60-5.20); RED CELL DISTRIBUTION WIDTH 16.2 % (12.3-16.5)
[2024-12-01 06:37] LABS: CORONAVIRUS COVID-19 NAA NEGATIVE (NEGATIVE)
[2024-12-01 06:49] LABS: A/G RATIO 0.9; ALANINE AMINOTRANSFERASE,ALT 14 U/L (12-36); ALKALINE PHOSPHATASE 67 IU/L (56-112); ASPARTATE AMNIOTRANSFERASE,AST 19 IU/L (5-25); BILIRUBIN TOTAL 0.4 mg/dL (0.1-1.3); BLOOD UREA NITROGEN,BUN 15 mg/dL (7-18); BUN/CREATININE RATIO 16.7 (9-20); CALCIUM 9.4 mg/dL (8.6-10.2); CARBON DIOXIDE,CO2 31 mmol/L (21-32); CHLORIDE,CL 105 mmol/L (100-110); CREATININE 0.9 mg/dL (0.55-1.02); EST CRCL DRUG DOSING (CG) 43.56 mL/min; ESTIMATED GFR 63 mL/min (>60); GLUCOSE RANDOM 94 mg/dL (80-116); POTASSIUM,K 4.3 mmol/L (3.5-5.3); PROTEIN TOTAL,TP 6.5 g/dL (6.0-8.0); SODIUM,NA 141 mmol/L (135-145)
[2024-12-01] MEDS: Brimonidine 0.2% Ophth Soln 5 ML Bottle EYERT SCH (08:42)
[2024-12-01] MEDS: Ascorbic Acid 500 MG Tab PO SCH (08:43)
[2024-12-01] MEDS: Beta-Carotene (Vitamin A) w/Vitamin C & E plus Minerals Tab PO SCH (08:43)
[2024-12-01] MEDS: Losartan 50 MG Tab PO ONE (14:00)
[2024-12-01 14:56] VITALS: BP 190/82; PULSE 65
== END 2024-12-01 14:25 | DRG 71 ==
LOC: FB.ED 10:55 → FB.MS 13:42
PROVIDERS: ADMIT Internal Medicine; ATTEND Internal Medicine
DX: I49.9 Cardiac arrhythmia, unspecified (principal); G93.40 Encephalopathy, unspecified; R41.0 Disorientation, unspecified; I74.9 Embolism and thrombosis of unspecified artery; R44.3 Hallucinations, unspecified; R00.1 Bradycardia, unspecified; E83.42 Hypomagnesemia; Z68.35 Body mass index [BMI] 35.0-35.9, adult; R79.89 Other specified abnormal findings of blood chemistry; E78.00 Pure hypercholesterolemia, unspecified; I10 Essential (primary) hypertension; K21.9 Gastro-esophageal reflux disease without esophagitis; M81.0 Age-related osteoporosis without current pathological fracture; E66.9 Obesity, unspecified; Z98.49 Cataract extraction status, unspecified eye; Z90.710 Acquired absence of both cervix and uterus; Z95.2 Presence of prosthetic heart valve; Z79.82 Long term (current) use of aspirin; Z98.890 Other specified postprocedural states; Z96.649 Presence of unspecified artificial hip joint; Z79.899 Other long term (current) drug therapy; Z96.659 Presence of unspecified artificial knee joint
CPT/HCPCS: 0241U; 36415; 70450; 70551; 71045; 71100; 73030; 73060; 80053; 80307; 81001; 82607; 82947; 83735; 84443; 84484; 85025; 85027; 93005; 93010; 94150; 99223; 99238; 99285; A9270-GY; J3475

== ENCOUNTER 2025-02-02 11:28 | Emergency (ER) | payer MEDICARE, OTHER ==
[2025-02-02 13:32] VITALS: BP 155/70; PULSE 61
== END 2025-02-02 13:02 | disposition home or self-care (01) ==
LOC: FB.ED 11:28
DX: R44.1 Visual hallucinations (principal); I10 Essential (primary) hypertension; E66.9 Obesity, unspecified; E78.00 Pure hypercholesterolemia, unspecified; Z79.82 Long term (current) use of aspirin; Z79.899 Other long term (current) drug therapy; Z68.34 Body mass index [BMI] 34.0-34.9, adult
CPT/HCPCS: 99284

== ENCOUNTER 2025-03-13 09:25 | Emergency (ER) | payer MEDICARE, OTHER ==
[2025-03-13] MEDS ORDERED: Sodium Chloride 0.9% 10 ML Syringe FLUSH PRN (09:40)
[2025-03-13 10:02] LABS: BASOPHILS ABSOLUTE AUTO 0.0 x10-3/uL (0.0-0.1); BASOPHILS PERCENT AUTO 0.5 % (0.2-1.5); EOSINOPHILS ABSOLUTE AUTO 0.1 x10-3/uL (0.0-0.8); EOSINOPHILS PERCENT AUTO 3.3 % (0.6-8.1); LYMPHOCYTES ABSOLUTE AUTO 0.6 x10-3/uL (1.0-4.4); LYMPHOCYTES PERCENT AUTO 13.0 % (18.4-52.1); MEAN PLATELET VOLUME 7.7 fL (7.1-12.4); MONOCYTES ABSOLUTE AUTO 0.5 x10-3/uL (0.3-1.0); MONOCYTES PERCENT AUTO 10.6 % (4.4-15.7); NEUTROPHILS ABSOLUTE AUTO 3.2 x10-3/uL (1.5-6.3); NEUTROPHILS PERCENT AUTO 72.6 % (30.8-76.2); PLATELET COUNT,PLT 119 x10(3)uL (151-488); RED BLOOD CELL COUNT 4.24 x10(6)uL (3.60-5.20); RED CELL DISTRIBUTION WIDTH 14.1 % (12.3-16.5); WHITE BLOOD CELL COUNT,WBC 4.5 x10-3/uL (3.0-10.3)
[2025-03-13 10:10] LABS: BLOOD UREA NITROGEN,BUN 18 mg/dL (7-18); CARBON DIOXIDE,CO2 31 mmol/L (21-32); CHLORIDE,CL 104 mmol/L (100-110); CREATININE 0.8 mg/dL (0.55-1.02); ESTIMATED GFR 72 mL/min (>60); GLUCOSE RANDOM 124 mg/dL (80-116); POTASSIUM,K 4.3 mmol/L (3.5-5.3); SODIUM,NA 138 mmol/L (135-145)
[2025-03-13 10:16] LABS: A/G RATIO 1.0; ALANINE AMINOTRANSFERASE,ALT 30 U/L (12-36); ASPARTATE AMNIOTRANSFERASE,AST 26 IU/L (5-25); BILIRUBIN TOTAL 0.5 mg/dL (0.1-1.3); PROTEIN TOTAL,TP 5.9 g/dL (6.0-8.0)
[2025-03-13 10:27] LABS: SEDIMENTATION RATE MANUAL 15 mm/hr (0-20)
[2025-03-13 10:41] LABS: APPEARANCE,URINE SLIGHTLY CLOUDY (CLEAR); GLUCOSE,URINE NORMAL (NORMAL); OCCULT BLOOD,URINE MODERATE (NEGATIVE)
[2025-03-13 10:48] LABS: SQUAMOUS EPITHELIAL CELLS,UR OCCASIONAL (NS,R,O)
[2025-03-13 12:27] VITALS: BP 188/76; PULSE 67
== END 2025-03-13 12:45 ==
LOC: FB.ED 09:25
DX: R51.9 Headache, unspecified (principal); R53.83 Other fatigue; I10 Essential (primary) hypertension; E78.00 Pure hypercholesterolemia, unspecified; K21.9 Gastro-esophageal reflux disease without esophagitis; E66.9 Obesity, unspecified; Z79.899 Other long term (current) drug therapy; Z79.82 Long term (current) use of aspirin; Z68.35 Body mass index [BMI] 35.0-35.9, adult
CPT/HCPCS: 70450; 80053; 81001; 83735; 84484; 85025; 85651; 86140; 93005; 99284

== ENCOUNTER 2025-03-21 10:56 | Emergency (ER) | payer MEDICARE, OTHER ==
[2025-03-21] MEDS ORDERED: Magnesium Sulf 1 GM/2 mL SDV 1 GM in Sodium Chloride 0.9% 50 ML IV ONE (11:22)
[2025-03-21 11:24] VITALS: BP 148/68; PULSE 57
[2025-03-21 11:27] LABS: BASOPHILS ABSOLUTE AUTO 0.0 x10-3/uL (0.0-0.1); BASOPHILS PERCENT AUTO 0.6 % (0.2-1.5); EOSINOPHILS ABSOLUTE AUTO 0.1 x10-3/uL (0.0-0.8); EOSINOPHILS PERCENT AUTO 2.3 % (0.6-8.1); LYMPHOCYTES ABSOLUTE AUTO 0.7 x10-3/uL (1.0-4.4); LYMPHOCYTES PERCENT AUTO 15.9 % (18.4-52.1); MEAN PLATELET VOLUME 7.9 fL (7.1-12.4); MONOCYTES ABSOLUTE AUTO 0.6 x10-3/uL (0.3-1.0); MONOCYTES PERCENT AUTO 11.8 % (4.4-15.7); NEUTROPHILS ABSOLUTE AUTO 3.2 x10-3/uL (1.5-6.3); NEUTROPHILS PERCENT AUTO 69.4 % (30.8-76.2); PLATELET COUNT,PLT 126 x10(3)uL (151-488); RED BLOOD CELL COUNT 4.23 x10(6)uL (3.60-5.20); RED CELL DISTRIBUTION WIDTH 14.4 % (12.3-16.5); WHITE BLOOD CELL COUNT,WBC 4.7 x10-3/uL (3.0-10.3)
[2025-03-21 11:31] LABS: BLOOD UREA NITROGEN,BUN 31 mg/dL (7-18); CARBON DIOXIDE,CO2 31 mmol/L (21-32); CHLORIDE,CL 108 mmol/L (100-110); CREATININE 1.4 mg/dL (0.55-1.02); EST CRCL DRUG DOSING (CG) 25.37 mL/min; ESTIMATED GFR 37 mL/min (>60); GLUCOSE RANDOM 118 mg/dL (80-116); POTASSIUM,K 4.3 mmol/L (3.5-5.3); SODIUM,NA 144 mmol/L (135-145)
[2025-03-21 11:33] LABS: BASE EXCESS VENOUS,POC 3 mmol/L (-2 - 3+); PCO2 VENOUS,POC 32 mmHg (41-51); PH VENOUS,POC 7.50 pH Units (7.32-7.43)
[2025-03-21 11:43] LABS: A/G RATIO 1.0; ALANINE AMINOTRANSFERASE,ALT 35 U/L (12-36); ASPARTATE AMNIOTRANSFERASE,AST 25 IU/L (5-25); BILIRUBIN TOTAL 0.4 mg/dL (0.1-1.3); PROTEIN TOTAL,TP 6.1 g/dL (6.0-8.0)
[2025-03-21 12:08] LABS: GLUCOSE,URINE NORMAL (NORMAL); OCCULT BLOOD,URINE MODERATE (NEGATIVE)
[2025-03-21 12:12] LABS: APPEARANCE,URINE CLOUDY (CLEAR)
[2025-03-21 12:13] LABS: SQUAMOUS EPITHELIAL CELLS,UR RARE (NS,R,O)
== END 2025-03-21 15:58 ==
LOC: FB.ED 10:56
DX: I95.1 Orthostatic hypotension (principal); E86.0 Dehydration; N28.9 Disorder of kidney and ureter, unspecified; R82.71 Bacteriuria; E88.09 Other disorders of plasma-protein metabolism, not elsewhere classified; R79.89 Other specified abnormal findings of blood chemistry; I10 Essential (primary) hypertension; E78.00 Pure hypercholesterolemia, unspecified; K21.9 Gastro-esophageal reflux disease without esophagitis; E66.9 Obesity, unspecified; Z79.01 Long term (current) use of anticoagulants; Z79.899 Other long term (current) drug therapy
CPT/HCPCS: 36415; 70450; 71045; 72125; 77063; 77067; 80053; 81001; 83605; 83735; 84484; 85025; 86140; 87040; 93010; 96360; 99284; 99285-25; A9270-GY; J7030